=== PATIENT | female | born 1955 | race Caucasian/White ===

== ENCOUNTER → 2023-12-07 14:54 | Outpatient (REF) | payer MEDICARE, OTHER, SELFPAY | LOC: RAD 14:54 | PROVIDERS: ATTENDING PHYSICIAN Family Medicine | DX: R09.89 Other specified symptoms and signs involving the circulatory and respiratory systems (principal) | CPT/HCPCS: 93880 ==

== ENCOUNTER → 2024-07-30 14:16 | Outpatient (REF) | payer MEDICARE, OTHER, SELFPAY | LOC: WDC 14:16 | PROVIDERS: ATTENDING PHYSICIAN Family Medicine; OTHER PHYSICIAN Internal Medicine Endocrinology, Diabetes & Metabolism | DX: M85.89 Other specified disorders of bone density and structure, multiple sites (principal); Z13.820 Encounter for screening for osteoporosis; Z78.0 Asymptomatic menopausal state; Z12.31 Encounter for screening mammogram for malignant neoplasm of breast | CPT/HCPCS: 77063; 77067 ==

== ENCOUNTER → 2024-09-05 09:28 | Outpatient (REF) | payer MEDICARE, OTHER, SELFPAY | LOC: HWRAD 09:28 | PROVIDERS: ATTENDING PHYSICIAN Registered Nurse Ambulatory Care; FAMILY PHYSICIAN Family Medicine | DX: R10.2 Pelvic and perineal pain (principal) | CPT/HCPCS: 76830; 76856 ==

== ENCOUNTER 2024-12-13 16:09 | Inpatient (IN) | payer MEDICARE, OTHER, SELFPAY ==
[2024-12-13] VITALS (9 sets, daily range): BP systolic 98–143; BP diastolic 55–97; BMI 25.8
[2024-12-13] MEDS: DILAUDID 1 MG IV ×2 (09:03→11:26)
--- NOTE | 2024-12-13 11:39 | ED.GENMED ---
History of Present Illness
<Mikhail Rubi DO - Last Filed: 12/13/24 11:42>
General
Chief Complaint: Fall
Time Seen by Provider: 12/13/24 08:13
<MARYURI Jeffrey - Last Filed: 12/13/24 14:40>
General
Source: patient and family
Exam Limitations: none
Nursing documentation reviewed up to this point in time: agreed with
History of Present Illness
History of Present Illness:
Patient is a 69-year female who presents with right ankle deformity and injury. She slipped down several steps this morning. She denies hitting her head she has no other complaints except right ankle pain. She denies any headache nausea vomiting.
She is not on blood thinners. She is a type 1 insulin-dependent diabetic.
Past History
<Mikhail Rubi DO - Last Filed: 12/13/24 11:42>
Past History
ED Past Medical History: Asthma, IDDM and Hypothyroidism
Social History
Tobacco: Non-smoker
Alcohol: None
Personal:
Employment: Employed
Review of Systems
<MARYURI Jeffrey - Last Filed: 12/13/24 14:40>
Review of Systems
Allergies reviewed?: Yes
All Other Systems: ROS reviewed and negative except as documented in HPI and ROS
Constitutional: Reports no symptoms; Denies fever, fatigue or chills
Respiratory: Reports no symptoms
Cardiac: Reports no symptoms
ABD/GI: Reports no symptoms
Musculoskeletal: Reports other (right ankle pain/deformity )
Hematologic/Lymphatic: Reports no symptoms
Psychiatric: Reports no symptoms
Phy Exam
<MARYURI Jeffrey - Last Filed: 12/13/24 14:40>
General Physical Exam
General Presentation: no apparent distress
General age: appears stated age
General Skin: warm and dry
General Habitus: normal
General Mental: alert
General Hydration: appears well hydrated
Eye Exam
Eye Exam: PERRL and EOMI
Eye Exam General: PERRL: bilateral and EOM intact: bilateral
Pupil Exam: Bilateral: round and reactive
Cardiovascular Exam
Cardiovascular Exam: regular rate/rhythm, no murmur and normal peripheral pulses
Pulmonary Exam
Pulmonary Exam: lungs clear and no respiratory distress
Neurological Exam
Neurological Exam: alert and oriented x3
Musculoskeletal Exam
Musculoskeletal Exam: other (rle with strong pulses + obvious deformity no abrasions or lacerations; normal cap refill normal sensation; no obvious head injury no c spine tenderness )
Skin Exam
Skin Exam: normal color and warm/dry
Psychiatric Exam
Psychiatric Exam: normal mood/affect
Course
<Mikhail Rubi, DO - Last Filed: 12/13/24 11:42>
Orders/Labs/Results
Orders:
Orders
12/13/24 07:44
Ankle, Right 3 view CR [CR Ankle - Right Min 3 Views *] Urgent
Comment:
Reason For Exam: fell down couple steps twisted right ankle
12/13/24 08:48
IV Insert/Care/Rem.- Treatment PRN
HYDROmorphone [Dilaudid] 1 mg IV NOW STA
12/13/24 11:22
HYDROmorphone [Dilaudid] 1 mg IV NOW STA
12/13/24 11:38
CT Lower Ext W/o Iv Cont Rt Urgent
Comment:
Reason For Exam: trauma
12/13/24 11:56
CBC/With Diff [Complete Blood Count/With Diff] Urgent
CMP [Comprehensive Metabolic Panel] Urgent
12/13/24 13:43
Ondansetron Injectable [Zofran] 4 mg IV NOW STA
Abnormal Lab Results
12/13/24
11:56
Hct 36.8 L %
(37.0-47.0)
MCHC 32.6 L g/dL
(33.0-37.0)
Lymphocytes % 18.2 L %
(20.5-51.1)
Carbon Dioxide 32 H mmol/L
(22-30)
Total Protein 5.9 L g/dl
(6.3-8.2)
12/13/24 11:56
12/13/24 11:56
Vital Signs
Initial and Last Documented VS:
Initial Vital Signs
Temp Pulse Resp BP Pulse Ox
98.8 F 67 16 127/65 98
12/13/24 07:45 12/13/24 07:45 12/13/24 07:45 12/13/24 07:45 12/13/24 07:45
Last Documented Vital Signs
Temp Pulse Resp BP Pulse Ox
98.8 F 63 16 129/97 95
12/13/24 07:45 12/13/24 10:13 12/13/24 10:13 12/13/24 13:47 12/13/24 14:00
<MARYURI Jeffrey - Last Filed: 12/13/24 14:40>
Orders/Labs/Results
Orders:
Orders
12/13/24 07:44
Ankle, Right 3 view CR [CR Ankle - Right Min 3 Views *] Urgent
Comment:
Reason For Exam: fell down couple steps twisted right ankle
12/13/24 08:48
IV Insert/Care/Rem.- Treatment PRN
HYDROmorphone [Dilaudid] 1 mg IV NOW STA
12/13/24 11:22
HYDROmorphone [Dilaudid] 1 mg IV NOW STA
12/13/24 11:38
CT Lower Ext W/o Iv Cont Rt Urgent
Comment:
Reason For Exam: trauma
12/13/24 11:56
CBC/With Diff [Complete Blood Count/With Diff] Urgent
CMP [Comprehensive Metabolic Panel] Urgent
12/13/24 13:43
Ondansetron Injectable [Zofran] 4 mg IV NOW STA
Abnormal Lab Results
12/13/24
11:56
Hct 36.8 L %
(37.0-47.0)
MCHC 32.6 L g/dL
(33.0-37.0)
Lymphocytes % 18.2 L %
(20.5-51.1)
Carbon Dioxide 32 H mmol/L
(22-30)
Total Protein 5.9 L g/dl
(6.3-8.2)
12/13/24 11:56
12/13/24 11:56
Vital Signs
Initial and Last Documented VS:
Initial Vital Signs
Temp Pulse Resp BP Pulse Ox
98.8 F 67 16 127/65 98
12/13/24 07:45 12/13/24 07:45 12/13/24 07:45 12/13/24 07:45 12/13/24 07:45
Last Documented Vital Signs
Temp Pulse Resp BP Pulse Ox
98.8 F 63 16 129/97 95
12/13/24 07:45 12/13/24 10:13 12/13/24 10:13 12/13/24 13:47 12/13/24 14:00
Chemists consulted with Physician
Chemists consulted with physician?: Yes
Name of Physician Consulted: Greyson
Procedures
<Mikhail Rubi DO - Last Filed: 12/13/24 11:42>
Joint/Fracture Reduction
Right Posterior Distal Ankle:
Indication for procedure:: Right Trimalleoular frature
Procedure completed by: Mikhail Rubi DO
Consent form signed: No
Joint reduced: without anesthesia
Injury was: closed
Further treatement: needs further treatment
Post reduction exam: stable
Capillary Refill: normal
Peripheral Pulses: dorsalis pedis (right): 2+
Additional information:
Patient gave verbal consent for procedure
<MARYURI Jeffrey - Last Filed: 12/13/24 14:40>
Splinting/Sling Placement
Right Ankle:
Pre-splint extermity exam: neurovascular intact
Type of splint: other (stir up/ posterior splint)
Splint material: fiberglass
Splint checked by provider?: Yes
<MARYURI Jeffrey - Last Filed: 12/13/24 14:40>
MDM/Problems Addressed
Differential Diagnosis Includes:
Not limited to ankle fracture/dislocation
MDM/Problems Addressed:
Patient is a 69-year female who fell a couple sepsis morning injuring her right ankle. Patient denies hitting her head no bony C-spine tenderness no other extremity injury except her right ankle. Patient has a trimalleolar ankle fracture
dislocation. She does have a mild deformity no abrasions or lacerations. Strong pulses normal sensation. Case reviewed with orthopedics Dr. Landry in splint neutral dorsiflexion who does recommend reduce it and splinting in neutral dorsiflexion
position. Patient was medicated with Dilaudid for pain and with assistance with Dr. Rubi this was completed with splint in place. CAT scan ordered as documented after reduction. Basic blood work was checked because pt reported that pt has had
scattered bruising. platelets are nml.
Pt is stable for d/c home splint care reviewed with ortho follow up.
Orthopedics visualized CAT scan and feels that patient may need to be reduced again. Unfortunately she just ate. In addition she is feeling nauseous. Patient will likely need to be admitted and will need to have procedure in the morning.
discussed with DR Trotter (who will pt this evening ) will adm to hospitalist
Chronic conditions affecting care:
Iddm
<MARYURI Jeffrey - Last Filed: 12/13/24 14:40>
*Critical Care Note
Total Time (30-74mins, 75-104mins- exclusive of procedures): Not Applicable
<MARYURI Jeffrey - Last Filed: 12/13/24 14:40>
Patient Management
Discussion with other providers: Microbiology Lab Assistant (Dr Landry/Rose Marie )
ED Attending Note
<Mikhail Rubi DO - Last Filed: 12/13/24 11:42>
ED Attending Note
Patient seen and examined by attending physician: Yes
I performed the substantive portion of visit, reviewed & personally made and approve the management plan that is documented in note by myself or DARNELL.: Yes
ED Attending Note:
I have seen and evaluated the patient with a [id number] encounter. I have spoken to the advance practicer provider and involved in the medical history, the physical exam, medical decision making.
Evaluation and management service: agree unless noted differently below.
Results interpretation: agree unless noted differently below.
Focused HPI: 69-year-old female presenting with right ankle injury. Patient states she slipped on the steps. She denies numbness or tingling
Physical exam: Obvious deformity to right ankle. Distal pulses and sensation grossly intact
Medical Decision Making: X-ray consistent with trimalleolar fracture and dislocation. After IV pain medicine, patient tolerated reduction well. Splint placed. Orthopedics aware and will follow
-
Portions of this chart may have been created with voice recognition software.� Occasional wrong word or��sound alike� substitutions may have occurred due to the inherent limitations of voice recognition software.
Discharge Plan
Departure
Patient Disposition: Admit
Date of Disposition: 12/13/24
Time of Disposition: 14:34
Admit to: Med/Surg
Admit to doctor: hospitalist
Presentation/result/management discussed w/ accepting MD/DO: Hospitalist
Patient with high blood pressure during this ER visit?: Yes
Condition: Fair
Covid-19: Not Applicable
Discharge Problem:
Closed displaced trimalleolar fracture of right ankle
Prescriptions:
No Action
aspirin 81 MG tablet,delayed release (DR/EC)
81 mg PO DAILY
esomeprazole magnesium [Nexium] 40 MG capsule,delayed release(DR/EC)
40 mg PO DAILY
levothyroxine 125 MCG tablet
125 mcg PO DAILY
fluticasone propion-salmeterol 100 MCG/50 MCG blister with device
1 puff inhalation DAILY
Lactobacillus rhamnosus GG 1 EACH capsule
1 ea PO DAILY
rosuvastatin 5 MG tablet
5 mg PO QPM
cholecalciferol (vitamin D3) [Vitamin D3] 2,000 UNIT tablet
4,000 unit PO DAILY
calcium carbonate-vit D3-min 1 EACH tablet,chewable
1 ea PO DAILY
Citalopram
60 mg PO DAILY
Multiple Vitamins
1 cap PO DAILY
Novolog:
IP DAILY
Patient Comments:
novolog insulin pump
ondansetron HCl [Zofran] 8 MG tablet
8 mg PO TIDPRN PRN (Reason: nausea) Qty: 15 0RF
Referrals:
Xander Lawton CRNP [Family Provider] -
Interventions
Interventions:
*Risk Screen - Suicide Last Done: 12/13/24 07:40
*General Assessment Last Done: 12/13/24 08:19
*Neglect/Abuse Screening Last Done: 12/13/24 07:40
*ED- Fall Risk Assessment Last Done: 12/13/24 08:19
*ED COVID-19 Vaccine History Last Done: 12/13/24 08:19
ED-Musculoskeletal Assessment Last Done: 12/13/24 08:19
ED- Neurological Assessment Last Done: 12/13/24 08:19
ED-Skin Assessment Last Done: 12/13/24 08:19
Discharge Date and Time
Print Language: ESTONIAN
[2024-12-13 12:09] LABS: % Basophils 0.3 % (0-2); % Eosinophils 0.7 % (0-6); % Immature Granulocytes 0.4 % (0-0.5); % Lymphocytes 18.2 % (20.5-51.1); % Monocytes 5.4 % (1.7-9.3); Absolute Eosinophils 0.1 10^3/uL (0-0.7); Absolute Lymphocytes 1.3 10^3/uL (1.2-3.4); Absolute Monocytes 0.4 10^3/uL (0.1-0.6); Absolute Neutrophils 5.5 10^3/uL (1.4-6.5); Hematocrit 36.8 % (37.0-47.0); Mean Corp Hgb Conc. 32.6 g/dL (33.0-37.0); Mean Corpuscular Hgb 27.8 pg (27.0-31.0); Mean Corpuscular Volume 85.2 fL (81.0-99.0); Mean Platelet Volume 8.6 fL (7.4-10.4); Nucleated Red Blood Cells % 0 %; Platelet Count 265 10^3/uL (130-400); Red Blood Cell Count 4.32 10^6/uL (4.20-5.40); Red Cell Dist. Width 13.1 % (11.5-14.5); White Blood Cell Count 7.4 10^3/uL (4.8-10.8)
[2024-12-13 12:23] LABS: ALT (SGPT) 24 U/L (0-35); AST (SGOT) 22 U/L (14-36); Albumin 3.7 g/dl (3.5-5.0); Alkaline Phosphatase 57 U/L (38-126); Blood Urea Nitrogen 13 mg/dl (7-17); Calcium 9.2 mg/dl (8.4-10.2); Carbon Dioxide 32 mmol/L (22-30); Chloride 103 mmol/L (98-107); Estimated Creatinine Clearance 80 ml/min; Glucose 71 mg/dl (70-99); Potassium 4.5 mmol/L (3.5-5.1); Sodium 138 mmol/L (135-145); Total Bilirubin 0.6 mg/dl (0.2-1.3); Total Protein 5.9 g/dl (6.3-8.2); eGFR > 60.00
[2024-12-13] MEDS: ZOFRAN 4 MG IV (13:46)
--- NOTE | 2024-12-13 15:18 | HPS.HSE ---
Family Physician
-
Family Physician: MARYURI Spence
Chief Complaint
-
Fall and Rt ankle deformity
History of Present Illness
HPI
69F HX IDDM on pump , Asthma seen at ER pw Rt ankle deformity and injury.
- She slipped down several steps this morning.
- She denies hitting her head
- She denies any headache nausea vomiting.
- She is not on blood thinners.
Medical History
Past Medical History
Past Medical History: Reports Asthma, Hypothyroidism and IDDM
Past Surgical History: Reports None
Social History
Tobacco: Non-smoker
Alcohol: None
Family History
Family History: Not pertinent
Allergies / Home Medications
Allergies reflects when Allergies were last updated in [facility].
Home Medications with original date entered in [facility]
Allergy/Medication List:
Allergies
Allergy/AdvReac Type Severity Reaction Status Date / Time
NKA - No Known Allergies Allergy Unknown Uncoded 12/13/24 07:43
Home Medications
Citalopram 60 mg PO DAILY 08/21/10
Lactobacillus rhamnosus GG 10 billion cell capsule 1 ea PO DAILY 08/21/10
Multiple Vitamins 1 cap PO DAILY 08/21/10
Novolog: IP DAILY 08/21/10
aspirin 81 mg tablet,delayed release 81 mg PO DAILY 08/21/10
calcium carb 1,200 mg-vit D3 1,000 unit-minerals chewable tablet 1 ea PO DAILY 08/21/10
cholecalciferol (vitamin D3) 50 mcg (2,000 unit) tablet (Vitamin D3) 4,000 unit PO DAILY 08/21/10
esomeprazole magnesium 40 mg capsule,delayed release (Nexium) 40 mg PO DAILY 08/21/10
fluticasone 100 mcg-salmeterol 50 mcg/dose blistr powdr for inhalation 1 puff inhalation DAILY 08/21/10
levothyroxine 125 mcg tablet 125 mcg PO DAILY 08/21/10
rosuvastatin 5 mg tablet 5 mg PO QPM 08/21/10
ondansetron HCl 8 mg tablet (Zofran) 8 mg PO TIDPRN PRN nausea ##15 08/22/10
Review of Systems
-
Constitutional: Reports No Symptoms
EENT: Reports No Symptoms
Respiratory: Reports No Symptoms
Cardiac: Reports No Symptoms
Abdomen/GI: Reports No Symptoms
: Reports No Symptoms and See HPI
Skin: Reports No Symptoms
Neurological: Reports No Symptoms
Endocrine: Reports No Symptoms
Hematologic/Lymphatic: Reports No Symptoms
Psych: Reports No Symptoms
Physical Exam
Vital Signs
Vital Signs
Temp Pulse Resp BP Pulse Ox
98.8 F 63 16 129/97 95
12/13/24 07:45 12/13/24 10:13 12/13/24 10:13 12/13/24 13:47 12/13/24 14:00
Physical Exam
General: Well Developed, Well Nourished and No Apparent Distress
HEENT: NormoCephalic, Moist mucous membranes and Atraumatic
Respiratory: Clear
Cardiac: S1/S2 and Regular Rhythm; No Murmur or Rub
GI: Soft, Non Tender, Non Distended and Normal Bowel Sounds; No Organomegaly
Rectal: Deferred by Provider
Musculoskeletal: No Clubbing, No Cyanosis, No Edema and Other (Rt ankle deformity )
Skin: No Rash
Neuro: Nonfocal/grossly intact
Laboratory Results
-
12/13/24 11:56
12/13/24 11:56
Laboratory Results
Total Bilirubin 0.6 mg/dl (0.2-1.3) 12/13/24 11:56
AST 22 U/L (14-36) 12/13/24 11:56
ALT 24 U/L (0-35) 12/13/24 11:56
Alkaline Phosphatase 57 U/L (38-126) 12/13/24 11:56
Data Reviewed
-
CT Scan: Report Reviewed by me
Lab Data: Labs Reviewed by me
Old Records: Reviewed
Impression/Plan
-
VS
12/13/24
07:45 12/13/24
11:00
Temp 98.8 F
Pulse 67
Resp Rate 16
Blood pressure 127/65 104/64
SaO2 98
Oxygen Mode of Delivery Room air
Laboratory Tests
12/13/24
11:56
WBC 7.4
Hgb 12.0
Plt Count 265
Carbon Dioxide 32 H
Creatinine 0.6
eGFR > 60.00
CR Ankle - Right Min 3 Views
Trimalleolar ankle fracture/dislocation with posterior subluxation of the talus relative to the distal tibia.
CT Lower Ext W/o Iv Cont Rt
-There is a displaced, highly comminuted trimalleolar fracture/dislocation as detailed above. There is posterior displacement of the talus relative to the distal tibia.
- fractures of the base of the first through fourth metatarsals. Findings may represent Lisfranc injury.
ASSESSMENT & PLAN
Pending Rx reconciliation
Closed Rt ankle Fx involving trimalleolar ankle fracture/dislocation with posterior subluxation of the talus
S/P mechanical Fall +
- s/p attempted reduction at ER
- Foot and ankle Ortho seen and reviewed [facility] [place] suggest need ORIF
- Dr Trotter will come in to eval this evening
- Fx set protocol : NPO after MN, Pain control and IVF
HX IDDM with insulin pump
- stop ISS pump after MN coz she can have dinner
- NPO after MN
- start ISS Low
- DM MANAGER MASS consult for post op pump management
Hypothyroid
- Pending Rx reconciliation
- on CAPACITOR PACK PRESS OPERATOR LT4 ?
HLD
- Pending Rx reconciliation
- on ASA and Rosuvastatin ?
DVT Px: SCD
Full code
IP MS
--- NOTE | 2024-12-13 15:47 | PN.DE.MGMTRT ---
Insulin Management
- -
12/13/2024: Diabetes Management for insulin pump
69 year old female Pt presented to the D /p fall, sustained Closed Rt ankle Fx involving trimalleolar ankle fracture/dislocation with posterior subluxation of the talus. Pt had attempted reduction in the ER that was unsuccessful, plan for ORIF in
AM.
PMH: Asthma, Hypothyroidism and T1DM on insulin pump.
Pt awake, alert, oriented, sitting up in chair, offers no complaints, able to discuss diabetes care plan. at bedside, very supportive
Pt reports recent A1C was 6.8%, uses Omnipod with Dexcom G7 and NovoLog insulin. POD is due to be changed tomorrow. Pump is currently in automated mode. Pump settings as follows. ICR 1:8, ICF 1:75, Target 120, 24 hour basal total 33 units.
Patient is using insulin pump without difficulty.
Will make no adjustments to pump settings. Patient aware to bolus and accuchecks will be done ACHS.
Discussed with Nurse about Pump worksheet to be placed at bedside.
Will cont to follow. Will update A1C
-
Diabetes History
- -
Type of Diabetes: 1
Pre-Admission Diabetes Regimen
12/13/24
11:56
Creatinine 0.6
Insulin Pump Settings
IP Diabetes Regimen
12/13/24
11:56
Glucose 71
Patient Education
--- NOTE | 2024-12-13 17:04 | PTCARENOTE ---
Patient admitted from home following a fall with a trimalleolar right ankle fracture.The patient is alert and oriented.She rates her pain at a 4 out of 10.The patient was able to use the bedside commode with a rolling walker and assistance upon
arrival.She was then placed in the chair with the right leg elevated.Plan is for surgery tomorrow.The patient has her call bernard in reach.
[2024-12-13 18:07] LABS: Glucose - Point of Care 88 mg/dl (70-99)
[2024-12-13] MEDS: TYLENOL 650 MG PO ×2 (18:12→19:42)
--- NOTE | 2024-12-13 19:06 | W.PN.UPDATE ---
Update Note
Progress Note Update
Patient seen at bedside s/p pilon fracture and lisfranc facture
-NPO past midnight
-Strict NWB RLE
-Pain control prn
-to OR tomorrow for Exfix application
-Plan for staged ORIF pending stable soft tissue envelope
[2024-12-13] MEDS: COLACE 100 MG PO (19:42)
[2024-12-13] MEDS: SENOKOT 17.2 MG PO (19:42)
[2024-12-13] MEDS: PT'S OWN INSULIN PUMP - NovoLOG SC (19:56)
[2024-12-13] MEDS: LAMICTAL 100 MG PO (22:08)
[2024-12-13] MEDS: PT'S OWN INSULIN PUMP - NovoLOG 1 UNIT SC (22:09)
[2024-12-13] MEDS: DILAUDID 0.5 MG IV (23:43)
[2024-12-14] VITALS (13 sets, daily range): BP systolic 106–154; BP diastolic 42–69
[2024-12-14] MEDS: TYLENOL PO ×3 (00:41→12:56)
[2024-12-14] MEDS: ROXICODONE 5 MG PO ×2 (01:39→07:39)
[2024-12-14] MEDS: DILAUDID 0.5 MG IV ×2 (03:51→09:31)
[2024-12-14] MEDS: TYLENOL 650 MG PO ×3 (07:42→19:26)
[2024-12-14] MEDS: LAMICTAL 100 MG PO ×2 (07:43→21:16)
[2024-12-14] MEDS: OSCAL CAL 500 500 MG PO (07:44)
[2024-12-14] MEDS: SENOKOT 17.2 MG PO ×2 (07:44→19:26)
[2024-12-14] MEDS: PT'S OWN INSULIN PUMP - NovoLOG SC ×2 (07:47→12:54)
[2024-12-14] MEDS: LR 1000 IV (08:23)
[2024-12-14] MEDS: COLACE 100 MG PO ×3 (08:23→19:26)
[2024-12-14 09:26] LABS: Glycohemoglobin (HgbA1c) 7.2 % (4.0-5.6)
--- NOTE | 2024-12-14 10:05 | CM ---
Reviewed the chart notes and spoke with the patient at the bedside. Patient anticipates going to the OR today for staged ORIF pending stable soft tissue envelope. The patient resides with her spouse in a two story home with three steps to enter.
The patient reports only DME is a glucometer and an insulin pump. The patient confirmed her pharmacy of choice is the [facility]. continues to be available to patient/family and is monitoring medical plan for needs at discharge.
Plan: Discharge plans will depend on the patient's progress.
[2024-12-14] MEDS: TORADOL 10 MG IV (11:09)
--- NOTE | 2024-12-14 13:07 | W.PN.HOSP.TC ---
Today's Communication/Plan
-
Pain control
OR today
Assessment / Plan
Assessment / Plan
69-year-old female had a fall
Xray Ankle - Right -Trimalleolar ankle fracture/dislocation with posterior subluxation of the talus relative to the distal tibia.
CT Lower Ext W/o Iv Cont Rt
-There is a displaced, highly comminuted trimalleolar fracture/dislocation as detailed above. There is posterior displacement of the talus relative to the distal tibia.
- fractures of the base of the first through fourth metatarsals. Findings may represent Lisfranc injury.
CVS: S1-S2 normal
Chest: CTA B/L
Abdomen: Soft, NT / Bowel sounds present
Extremities: No edema,right leg in an immobilizer
# Closed comminuted trimalleolar ankle fracture with dislocation with posterior subluxation on the right
Fractures of the base of the first through fourth metatarsals.
Attempted reduction in the ER
Dr Dominique Trotter to take patient to the OR
Preop EKG Normal
# Diabetes with insulin pump
Accu-Cheks and sliding scale insulin-while n.p.o.
Diabetes management TUBING DRIER consulted
# Hypothyroidism-continue Synthroid 125 mcg daily
# Mental health disorder-continue Lamictal and Lexapro
# Hyperlipidemia-continue atorvastatin
# Asthma-continue Breo Ellipta or equivalent and albuterol
# Migraines
# GERD-continue PPI
# DVT prophylaxis-Lovenox
# Full code
Discussed with nursing.
Discussed with at bedside
Anticipated Discharge: 24 - 48 hours
Subjective/Interval History
-
Date of Service: December 14, 2024
Objective Data
-
Vital Signs:
Vital Signs
Temp Pulse Resp BP Pulse Ox
98.4 F 72 16 122/57 95
12/14/24 07:15 12/14/24 07:15 12/14/24 07:15 12/14/24 07:15 12/14/24 07:15
I&O
12/13/24 12/14/24 12/15/24
06:59 06:59 06:59
Intake Total 480 / 480
Balance 480 / 480
[2024-12-14 13:37] LABS: Glucose - Point of Care 141 mg/dl (70-99)
[2024-12-14] MEDS: ANCEF IV (14:43)
[2024-12-14] MEDS: LOVENOX 40 MG SC ×2 (16:55→16:56)
[2024-12-14] MEDS: PT'S OWN INSULIN PUMP - NovoLOG 6.6 UNIT SC (16:55)
[2024-12-14] MEDS: LIPITOR 40 MG PO (16:57)
[2024-12-14] MEDS: ANCEF 5 IV (21:17)
[2024-12-14 21:42] LABS: Glucose - Point of Care 322 mg/dl (70-99)
[2024-12-14] MEDS: PT'S OWN INSULIN PUMP - NovoLOG 0.5 UNIT SC (22:47)
[2024-12-15] VITALS (7 sets, daily range): BP systolic 124–144; BP diastolic 46–66; PULSE 83; O2SAT 96
[2024-12-15] MEDS: TYLENOL PO (00:40)
[2024-12-15] MEDS: LR 1000 IV (01:19)
[2024-12-15] MEDS: TYLENOL 650 MG PO ×6 (03:00→23:59)
[2024-12-15] MEDS: ANCEF 5 IV ×2 (05:28→12:39)
[2024-12-15 05:34] LABS: Hematocrit 32.4 % (37.0-47.0); Hemoglobin 10.6 g/dL (12.0-16.0); Mean Corp Hgb Conc. 32.7 g/dL (33.0-37.0); Mean Corpuscular Hgb 27.7 pg (27.0-31.0); Mean Corpuscular Volume 84.8 fL (81.0-99.0); Mean Platelet Volume 9.2 fL (7.4-10.4); Platelet Count 239 10^3/uL (130-400); Red Blood Cell Count 3.82 10^6/uL (4.20-5.40); Red Cell Dist. Width 12.9 % (11.5-14.5); White Blood Cell Count 8.7 10^3/uL (4.8-10.8)
[2024-12-15 05:54] LABS: Blood Urea Nitrogen 14 mg/dl (7-17); Calcium 8.9 mg/dl (8.4-10.2); Carbon Dioxide 32 mmol/L (22-30); Chloride 97 mmol/L (98-107); Estimated Creatinine Clearance 80 ml/min; Glucose 248 mg/dl (70-99); Potassium 4.6 mmol/L (3.5-5.1); Sodium 135 mmol/L (135-145); eGFR > 60.00
[2024-12-15] MEDS: PT'S OWN INSULIN PUMP - NovoLOG SC ×3 (08:00→22:00)
[2024-12-15] MEDS: OSCAL CAL 500 500 MG PO (08:03)
[2024-12-15] MEDS: SENOKOT 17.2 MG PO ×2 (08:04→21:33)
[2024-12-15] MEDS: ROXICODONE 5 MG PO (08:05)
[2024-12-15] MEDS: LAMICTAL 100 MG PO ×2 (08:06→21:33)
--- NOTE | 2024-12-15 11:38 | W.PN.UPDATE ---
Update Note
Progress Note Update
s/p right ankle external fixator
Strict NWB RLE
Contine ABx for 24 hour from surgery
Plan for staged procedure this week, can be inpatient or outpatient
PT/OT
Dressings C/D/I
[2024-12-15] MEDS: TORADOL 10 MG IV (12:37)
[2024-12-15] MEDS: LR IV (14:13)
--- NOTE | 2024-12-15 14:30 | PTCARENOTE ---
TT to Dr. Trotter regarding d/c IVF and d/c continuous pulse ox.
--- NOTE | 2024-12-15 14:39 | W.PN.HOSP.TC ---
Today's Communication/Plan
-
Change site for insulin pump
Make sure we document Accu-Cheks with our meter before meals and at bedtime
PT with nonweightbearing right lower extremity
Second stage surgery planned for December 18
Assessment / Plan
Assessment / Plan
Seen earlier today. Late documentation
69-year-old female had a fall
Xray Ankle - Right -Trimalleolar ankle fracture/dislocation with posterior subluxation of the talus relative to the distal tibia.
CT Lower Ext W/o Iv Cont Rt
-There is a displaced, highly comminuted trimalleolar fracture/dislocation as detailed above. There is posterior displacement of the talus relative to the distal tibia.
- fractures of the base of the first through fourth metatarsals. Findings may represent Lisfranc injury.
CVS: S1-S2 normal
Chest: CTA B/L
Abdomen: Soft, NT / Bowel sounds present
Extremities: No edema,right leg in an immobilizer, external fixator
# Closed comminuted trimalleolar ankle fracture with dislocation with posterior subluxation on the right
Fractures of the base of the first through fourth metatarsals.
Attempted reduction in the ER
Dr. Trotter took patient to the OR 12/14/2024-Right ankle multiplanar external fixator applied with close to reduction of Lisfranc fracture and closed reduction of the tib-fib pilon fracture
Next to surgery is planned for December 18 2024
Patient was given the option to go home and come back for the surgery however patient and feel uncomfortable with that and wants to stay and get the surgery done.
Strict nonweightbearing right lower extremity
# Diabetes with insulin pump
Diabetes management PLANNING ASSOCIATE consulted
Patient's sugar was about 300 last night
She states that it is a one-time thing and has been 238 today.
I do not see Accu-Cheks documented since last night. I told the patient as well as nursing that we need to document Accu-Cheks with our meter
Patient follows with Dr. Scott from endocrinology
Advised patient to change the site which she will change tonight if the sugars are running high.
# Hypothyroidism-continue Synthroid 125 mcg daily
# Mental health disorder-continue Lamictal and Lexapro
# Hyperlipidemia-continue atorvastatin
# Asthma-continue Breo Ellipta or equivalent and albuterol
# Migraines
# GERD-continue PPI
# DVT prophylaxis-Lovenox
# Full code
Discussed with nursing.
Discussed with at bedside
Anticipated Discharge: > 48 hours
Subjective/Interval History
-
Date of Service: December 15, 2024
Objective Data
-
Labs:
Laboratory Results
12/15/24
04:01
WBC 8.7
Hgb 10.6 L
Hct 32.4 L
Plt Count 239
Sodium 135
Potassium 4.6
Chloride 97 L
Carbon Dioxide 32 H
BUN 14
Creatinine 0.5 L
Glucose 248 H
Calcium 8.9
Vital Signs:
Vital Signs
Temp Pulse Resp BP Pulse Ox
98.4 F 78 16 144/66 97
12/15/24 11:05 12/15/24 11:05 12/15/24 11:05 12/15/24 11:05 12/15/24 11:05
I&O
12/14/24 12/15/24 12/16/24
06:59 06:59 06:59
Intake Total 480 / 480 1320 / 1320 480 / 480
Output Total 1500 / 1500
Balance 480 / 480 -180 / -180 480 / 480
[2024-12-15 17:11] LABS: Glucose - Point of Care 172 mg/dl (70-99)
[2024-12-15] MEDS: PT'S OWN INSULIN PUMP - NovoLOG 5.35 UNIT SC (17:38)
[2024-12-15] MEDS: LIPITOR 40 MG PO (19:21)
[2024-12-15] MEDS: COLACE 100 MG PO (21:33)
[2024-12-15] MEDS: LIDOCAINE 4% PATCH 1 PATCH TOPICAL (21:34)
[2024-12-15] MEDS: PROTONIX 40 MG PO (23:59)
[2024-12-16] MEDS: ROXICODONE 5 MG PO ×2 (01:05→23:51)
[2024-12-16] MEDS: TYLENOL PO (05:03)
[2024-12-16] MEDS: TORADOL 10 MG IV ×2 (05:35→14:15)
[2024-12-16 07:05] VITALS: BP 132/68
[2024-12-16 07:40] LABS: Hematocrit 31.9 % (37.0-47.0); Hemoglobin 10.2 g/dL (12.0-16.0); Mean Corpuscular Hgb 27.3 pg (27.0-31.0); Mean Corpuscular Volume 85.5 fL (81.0-99.0); Mean Platelet Volume 8.7 fL (7.4-10.4); Platelet Count 230 10^3/uL (130-400); Red Blood Cell Count 3.73 10^6/uL (4.20-5.40); Red Cell Dist. Width 13.1 % (11.5-14.5); White Blood Cell Count 6.5 10^3/uL (4.8-10.8)
[2024-12-16] MEDS: SENOKOT 17.2 MG PO (08:00)
[2024-12-16] MEDS: TYLENOL 650 MG PO ×5 (08:00→23:51)
[2024-12-16] MEDS: OSCAL CAL 500 500 MG PO (08:01)
[2024-12-16] MEDS: PROTONIX 40 MG PO (08:01)
[2024-12-16] MEDS: LAMICTAL 100 MG PO ×2 (08:01→20:55)
[2024-12-16] MEDS: LIDOCAINE 4% PATCH 1 PATCH TOPICAL (08:01)
[2024-12-16] MEDS: COLACE 100 MG PO ×2 (08:01→20:58)
[2024-12-16 08:11] LABS: Blood Urea Nitrogen 11 mg/dl (7-17); Calcium 8.8 mg/dl (8.4-10.2); Carbon Dioxide 33 mmol/L (22-30); Chloride 99 mmol/L (98-107); Estimated Creatinine Clearance 80 ml/min; Glucose 102 mg/dl (70-99); Potassium 4.4 mmol/L (3.5-5.1); Sodium 138 mmol/L (135-145); eGFR > 60.00
--- NOTE | 2024-12-16 08:34 | PN.DE.MGMTRT ---
Insulin Management
- -
12/16/2024: Diabetes Management for insulin pump follow up
69 year old female Pt presented to the D /p fall, sustained Closed Rt ankle Fx involving trimalleolar ankle fracture/dislocation with posterior subluxation of the talus. Pt had attempted reduction in the ER that was unsuccessful, plan for ORIF in
AM.
PMH: Asthma, Hypothyroidism and T1DM on insulin pump. routinely sees Endo Dr. Scott. Pt reports recent A1C was 6.8%, uses Omnipod with Dexcom G7 and NovoLog insulin. POD is due to be changed tomorrow. Update A1C 7.2%, Cr 0.6, eGFR>60
Pt awake, alert, oriented, sitting up in chair, offers no complaints, able to discuss diabetes care plan. at bedside, very supportive
POD #2 s/p Right ankle external fixator. Pt was given the option to go home and come back for the surgery however pt and felt uncomfortable with that and wanted to stay and get the surgery done. Next surgery is planned for MondayDecember 18
Pump is currently in automated mode. Pump settings as follows. ICR 1:8, ICF 1:75, Target 120, 24 hour basal total 33 units.
Patient is using insulin pump without difficulty.
Will make no adjustments to pump settings, pt aware to bolus.
Accuchecks will be done ACHS with hospital equipment. Need for accucheks with CGM in place discussed with pt and . Both were under the impression that pt did not need glucose checks while in the hospital.
Discussed with Nurse about insulin Pump worksheet at bedside.
Will cont to follow.
Diabetes History
- -
Type of Diabetes: 1
Pre-Admission Diabetes Regimen
12/16/24
07:15
Creatinine 0.6
Lab Results
Hemoglobin A1c 7.2 % (4.0-5.6) H 12/13/24 11:56
Insulin Pump Settings
IP Diabetes Regimen
12/15/24 12/16/24
17:10 07:15
Glucose 102 H
POC Glucose 172 H
Meal type: Lunch
Meal type: Breakfast
Amount consumed: 100%
Amount consumed: 95%
Patient Education
--- NOTE | 2024-12-16 08:50 | W.PN.HOSP.TC ---
Today's Communication/Plan
-
Continue accuchecks and insulin, pain control
Assessment / Plan
Assessment / Plan
69-year-old female s/p fall
Xray Ankle - Right -Trimalleolar ankle fracture/dislocation with posterior subluxation of the talus relative to the distal tibia.
CT Lower Ext W/o Iv Cont Rt
-There is a displaced, highly comminuted trimalleolar fracture/dislocation as detailed above. There is posterior displacement of the talus relative to the distal tibia.
- fractures of the base of the first through fourth metatarsals. Findings may represent Lisfranc injury.
# Closed comminuted trimalleolar ankle fracture with dislocation with posterior subluxation on the right
Fractures of the base of the first through fourth metatarsals.
Attempted reduction in the ER
Dr. Trotter took patient to the OR 12/14/2024-Right ankle multiplanar external fixator applied with close to reduction of Lisfranc fracture and closed reduction of the tib-fib pilon fracture
Next to surgery is planned for December 18 2024
Patient was given the option to go home and come back for the surgery however patient and feel uncomfortable with that and wants to stay and get the surgery done.
Strict nonweightbearing right lower extremity
Continue PT/OT
Pain control
# Diabetes I with insulin pump
Patient follows with Dr. Scott from endocrinology
Diabetes management HEAVY DUTY PRESS OPERATOR consulted
Continue accuchecks with hospital equipment to ensure accuracy of patients monitor
Continue insulin
# Hypothyroidism-continue Synthroid 125 mcg daily
# Mental health disorder, anxiety/depression-continue Lamictal and Lexapro
# Hyperlipidemia-continue atorvastatin
# Asthma-continue Breo Ellipta or equivalent and albuterol
# GERD-continue PPI
# Right rib pain
- xray negative for rib fracture
- Supportive care
- Incentive spirometer
Code status: Full
VTE ppx: lovenox
Diet: Diabetic
Dispo planning: anticipate SNF, pending PT/OT evaluation postop
Anticipated Discharge: > 48 hours
Subjective/Interval History
-
Date of Service: December 16, 2024
No acute events overnight. Complains of R rib pain, which is improved with lidocaine patch. Denies dizziness, chest pain, shortness of breath, nausea, vomiting, diarrhea, constipation. Has been out of bed to bedside commode, otherwise not
ambulating. Tolerating PO diet. Last BM overnight.
Objective Data
-
Labs:
Laboratory Results
12/16/24
07:15
WBC 6.5
Hgb 10.2 L
Hct 31.9 L
Plt Count 230
Sodium 138
Potassium 4.4
Chloride 99
Carbon Dioxide 33 H
BUN 11
Creatinine 0.6
Glucose 102 H
Calcium 8.8
Vital Signs:
Vital Signs
Temp Pulse Resp BP Pulse Ox
97.9 F 67 16 132/68 98
12/16/24 07:05 12/16/24 07:05 12/16/24 07:05 12/16/24 07:05 12/16/24 07:05
I&O
12/15/24 12/16/24 12/17/24
06:59 06:59 06:59
Intake Total 1320 / 1320 1320 / 1320 960 / 960
Output Total 1500 / 1500
Balance -180 / -180 1320 / 1320 960 / 960
Review of Systems
-
History Source: Patient
All other systems: Reviewed and negative
Physical Exam
-
General: Well Developed, No Apparent Distress, Comfortable and Conversant; Negative Pain
HEENT: Normocephalic and Atraumatic
Respiratory: Clear to Auscultation and Non Labored Respirations; Negative Wheezes or Crackles
Cardiac: Regular Rhythm and S1/S2
GI: Soft, Nontender, Nondistended and Normal Bowel Sounds
Musculoskeletal: Other (RLE in immobilizer, external fixator )
Skin: Warm and Dry
Neuro: Awake, Alert, Oriented and Nonfocal/Grossly Intact
Psych: Calm and Intact Judgement/Insight
Data Reviewed
-
Diagnostic Radiology: Image personally visualized and interpreted and Report Reviewed by me
CT Scan: Report Reviewed by me
Labs: Labs Reviewed by me
[2024-12-16 09:20] LABS: Glucose - Point of Care 132 mg/dl (70-99)
[2024-12-16] MEDS: PT'S OWN INSULIN PUMP - NovoLOG 3.75 UNIT SC (09:20)
[2024-12-16 09:35] VITALS: BP 129/58; PULSE 78
[2024-12-16 09:40] VITALS: BP 129/58; PULSE 78
--- NOTE | 2024-12-16 10:36 | W.PN.UPDATE ---
Update Note
Progress Note Update
I saw and evaluated the patient. I reviewed the resident�s note and agree with findings and plan as documented in the resident�s note.
No new complaints.
Gen: NAD, AAOx3.
Eyes: EOMI, PERRLA, no scleral icterus.
Neck: supple.
CV: RRR, +S1/S2, no m/r/g.
Resp: CTAB, no rales, wheezes, or rhonchi.
Abd: +BS, soft, NT, ND
Skin: No rashes.
Neuro: CN 2-12 intact, non-focal.
Psych: Normal mood and affect.
R Ankle Xray: Trimalleolar ankle fracture/dislocation with posterior subluxation of the talus relative to the distal tibia.
CT RLE: Displaced, highly comminuted trimalleolar fracture/dislocation as detailed above. Posterior displacement of the talus relative to the distal tibia. Fractures of the base of the first through fourth metatarsals. Findings may represent
Lisfranc injury.
Closed comminuted trimalleolar ankle fracture with dislocation with posterior subluxation on the right, fractures of the base of the first through fourth metatarsals:
-reduction was attempted in the ER
-s/p Right ankle multiplanar external fixator applied with close to reduction of Lisfranc fracture and closed reduction of the tib-fib pilon fracture on 12/14/24
-next surgery planned for 12/18/24
-Strict NWB RLE
DM2:
-cont insulin pump
-diabetes TRUCK DRIVER HEAVY following
Other problems:
Hypothyroidism: cont Synthroid
Mental health disorder: cont Lamictal/Lexapro
HLD: cont atorvastatin
Asthma, not in acute exac
Migraine headaches
GERD: cont PPI
FULL/Lovenox
[2024-12-16 13:41] LABS: Glucose - Point of Care 159 mg/dl (70-99)
[2024-12-16] MEDS: PT'S OWN INSULIN PUMP - NovoLOG 1.75 UNIT SC (13:53)
--- NOTE | 2024-12-16 15:36 | CM ---
Patient seen at bedside with patient . Patient plan is for surgery on mon. and she is hoping to have less hardware and possibly be able look at next step for rehab pending assessments. CM will continue to follow for discharge planning needs.
Plan; home with VN pending therapy assessments.
[2024-12-16 15:39] VITALS: BP 133/57
--- NOTE | 2024-12-16 16:15 | W.PN.SURGUPD ---
Surgical Update
Surgical Update
s/p right ankle external fixator
Strict NWB RLE
Continue abx for 24 hour from surgery
Plan for ORIF Monday vs this pending progress
Will continue to follow
[2024-12-16 17:35] LABS: Glucose - Point of Care 130 mg/dl (70-99)
[2024-12-16] MEDS: PT'S OWN INSULIN PUMP - NovoLOG 3.65 UNIT SC (18:23)
[2024-12-16] MEDS: LIPITOR 40 MG PO (18:28)
[2024-12-16] MEDS: LOVENOX 40 MG SC (18:28)
[2024-12-16] MEDS: SENOKOT PO (20:58)
[2024-12-16 23:05] VITALS: BP 145/72
[2024-12-16] MEDS: PT'S OWN INSULIN PUMP - NovoLOG 0.64 UNIT SC (23:46)
[2024-12-17] MEDS: TYLENOL PO (05:06)
[2024-12-17 06:10] LABS: Hematocrit 33.2 % (37.0-47.0); Hemoglobin 10.7 g/dL (12.0-16.0); Mean Corp Hgb Conc. 32.2 g/dL (33.0-37.0); Mean Corpuscular Hgb 27.3 pg (27.0-31.0); Mean Corpuscular Volume 84.7 fL (81.0-99.0); Mean Platelet Volume 8.9 fL (7.4-10.4); Platelet Count 248 10^3/uL (130-400); Red Blood Cell Count 3.92 10^6/uL (4.20-5.40); Red Cell Dist. Width 13.2 % (11.5-14.5)
[2024-12-17 06:33] LABS: Blood Urea Nitrogen 11 mg/dl (7-17); Calcium 8.9 mg/dl (8.4-10.2); Carbon Dioxide 33 mmol/L (22-30); Chloride 100 mmol/L (98-107); Estimated Creatinine Clearance 80 ml/min; Glucose 106 mg/dl (70-99); Potassium 4.3 mmol/L (3.5-5.1); Sodium 137 mmol/L (135-145); eGFR > 60.00
[2024-12-17 07:00] VITALS: BP 149/71
[2024-12-17] MEDS: LIDOCAINE 4% PATCH 1 PATCH TOPICAL (07:30)
[2024-12-17] MEDS: COLACE 100 MG PO (07:30)
[2024-12-17] MEDS: PROTONIX 40 MG PO (07:30)
[2024-12-17] MEDS: SENOKOT 17.2 MG PO (07:30)
[2024-12-17] MEDS: LAMICTAL 100 MG PO ×2 (07:30→20:45)
[2024-12-17] MEDS: OSCAL CAL 500 500 MG PO (07:30)
[2024-12-17] MEDS: TYLENOL 650 MG PO ×5 (07:31→23:16)
[2024-12-17] MEDS: TORADOL 10 MG IV ×2 (07:38→23:16)
--- NOTE | 2024-12-17 08:03 | PN.DE.MGMTRT ---
Insulin Management
- -
12/17/2024: Diabetes Management for insulin pump follow up
69 year old female Pt presented to the D /p fall, sustained Closed Rt ankle Fx involving trimalleolar ankle fracture/dislocation with posterior subluxation of the talus. Pt had attempted reduction in the ER that was unsuccessful, plan for ORIF in
AM.
PMH: Asthma, Hypothyroidism and T1DM on insulin pump. routinely sees Endo Dr. Scott. Pt reports recent A1C was 6.8%, uses Omnipod with Dexcom G7 and NovoLog insulin. A1C 7.2%, Cr 0.6, eGFR>60
Pt awake, alert, oriented, sitting up in chair, offers no complaints, able to discuss diabetes care plan. at bedside, very supportive
POD #3 s/p Right ankle external fixator. Pt was given the option to go home and come back for the surgery however pt and felt uncomfortable with that and wanted to stay and get the surgery done. Next surgery is planned for MondayDecember 18
Pump is currently in automated mode. Pump settings as follows. ICR 1:8, ICF 1:75, Target 120, 24 hour basal total 33 units.
Patient is using insulin pump without difficulty.
Will make no adjustments to pump settings, pt aware to bolus for meals and correction if required.
Accuchecks will be done ACHS with hospital equipment. Need for accucheks with CGM in place discussed with pt and . Both were under the impression that pt did not need glucose checks while in the hospital.
Insulin Pump worksheet at bedside.
Will cont to follow.
Diabetes History
- -
Type of Diabetes: 2 requiring insulin
Pre-Admission Diabetes Regimen
12/16/24 12/17/24
07:15 05:15
Creatinine 0.6 0.6
Lab Results
Hemoglobin A1c 7.2 % (4.0-5.6) H 12/13/24 11:56
Insulin Pump Settings
IP Diabetes Regimen
12/16/24 12/16/24 12/16/24
07:15 09:19 13:39
Glucose 102 H
POC Glucose 132 H 159 H
12/16/24 12/17/24
17:31 05:15
Glucose 106 H
POC Glucose 130 H
Meal type: Dinner
Meal type: Breakfast
Amount consumed: 100%
Amount consumed: 85%
Patient Education
[2024-12-17 08:09] LABS: Glucose - Point of Care 132 mg/dl (70-99)
[2024-12-17] MEDS: PT'S OWN INSULIN PUMP - NovoLOG SC (08:16)
--- NOTE | 2024-12-17 09:46 | W.PN.HOSP.TC ---
Today's Communication/Plan
-
Continue accuchecks and insulin, pain control
Assessment / Plan
Assessment / Plan
69-year-old female with PMH IDDM I, asthma admitted for right ankle fracture s/p fall
Xray Ankle - Right -Trimalleolar ankle fracture/dislocation with posterior subluxation of the talus relative to the distal tibia.
CT Lower Ext W/o Iv Cont Rt
-There is a displaced, highly comminuted trimalleolar fracture/dislocation as detailed above. There is posterior displacement of the talus relative to the distal tibia.
- fractures of the base of the first through fourth metatarsals. Findings may represent Lisfranc injury.
# Closed comminuted trimalleolar ankle fracture with dislocation with posterior subluxation on the right
# Fractures of the base of the first through fourth metatarsals.
- S/p Attempted reduction in the ER.
- S/p OR with Dr. Trotter 12/14/2024-Right ankle multiplanar external fixator applied with close to reduction of Lisfranc fracture and closed reduction of the tib-fib pilon fracture
- Next surgery is planned for December 18 vs , per podiatry.
- Strict nonweightbearing right lower extremity
- Continue PT/OT
- Pain control- required oxycodone x1 overnight.
# Diabetes I with insulin pump
- Patient follows with Dr. Scott from endocrinology
- A1C- 7.2 on admission, POC BS elevated as well
- Diabetes management following, appreciate recs.
- Continue accuchecks with hospital equipment to ensure accuracy of patients monitor
- Continue home insulin regimen and automated pump mode with bolus prn
# Hypothyroidism-continue Synthroid 125 mcg daily
# Mental health disorder, anxiety/depression-continue Lamictal and Lexapro
# Hyperlipidemia-continue atorvastatin
# Asthma-continue Breo Ellipta or equivalent and albuterol
# GERD-continue PPI
# Right rib pain- xray negative for rib fracture. Continue Supportive care, Incentive spirometer reviewed with pt.
Code status: Full
VTE ppx: lovenox
Diet: Diabetic
Dispo planning: SNF vs home, pending PT/OT evaluation postop
Anticipated Discharge: 24 - 48 hours
Subjective/Interval History
-
Date of Service: December 17, 2024
No acute events overnight. Reports right rib pain with movement, improved with rest and heating pad. RLE pain well controlled. Feels well overall. Denies lightheadedness, dizziness, chest pain, shortness of breath, nausea, vomiting, diarrhea,
constipation. Tolerating oral diet. Resting comfortably in chair, remains strict nonweight bearing of RLE.
Objective Data
-
Labs:
Laboratory Results
12/17/24
05:15
WBC 7.0
Hgb 10.7 L
Hct 33.2 L
Plt Count 248
Sodium 137
Potassium 4.3
Chloride 100
Carbon Dioxide 33 H
BUN 11
Creatinine 0.6
Glucose 106 H
Calcium 8.9
Vital Signs:
Vital Signs
Temp Pulse Resp BP Pulse Ox
98.1 F 74 16 149/71 97
12/17/24 07:00 12/17/24 07:00 12/17/24 07:00 12/17/24 07:00 12/17/24 07:00
I&O
12/16/24 12/17/24 12/18/24
06:59 06:59 06:59
Intake Total 1320 / 1320 2480 / 2480
Balance 1320 / 1320 2480 / 2480
Review of Systems
-
History Source: Patient
All other systems: Reviewed and negative
Physical Exam
-
General: Well Developed, No Apparent Distress, Comfortable and Conversant; Negative Pain
HEENT: Normocephalic and Atraumatic
Respiratory: Clear to Auscultation, Non Labored Respirations and Other (IS at bedside, reviewed use with patient); Negative Wheezes or Crackles
Cardiac: Regular Rhythm and S1/S2
GI: Soft, Nontender, Nondistended and Normal Bowel Sounds
Musculoskeletal: Other (RLE: immobilizer/external fixator, dressing clean dry intact, normal capillary refill of toes)
Skin: Warm and Dry
Neuro: Awake, Alert, Oriented and Nonfocal/Grossly Intact
Psych: Calm and Intact Judgement/Insight
Data Reviewed
-
Diagnostic Radiology: Image personally visualized and interpreted and Report Reviewed by me
CT Scan: Report Reviewed by me
Labs: Labs Reviewed by me
--- NOTE | 2024-12-17 09:55 | W.PN.UPDATE ---
Update Note
Progress Note Update
I saw and evaluated the patient. I reviewed the resident�s note and agree with findings and plan as documented in the resident�s note.
No new complaints.
Gen: NAD, AAOx3.
Eyes: EOMI, PERRLA, no scleral icterus.
Neck: supple.
CV: remains RRR, +S1/S2, no m/r/g.
Resp: remains CTAB, no rales, wheezes, or rhonchi.
Abd: remains +BS, soft, NT, ND
Skin: No rashes.
Neuro: CN 2-12 intact, non-focal.
Psych: Normal mood and affect.
R Ankle Xray: Trimalleolar ankle fracture/dislocation with posterior subluxation of the talus relative to the distal tibia.
CT RLE: Displaced, highly comminuted trimalleolar fracture/dislocation as detailed above. Posterior displacement of the talus relative to the distal tibia. Fractures of the base of the first through fourth metatarsals. Findings may represent
Lisfranc injury.
Closed comminuted trimalleolar ankle fracture with dislocation with posterior subluxation on the right, fractures of the base of the first through fourth metatarsals:
-reduction was attempted in the ER
-s/p Right ankle multiplanar external fixator applied with close to reduction of Lisfranc fracture and closed reduction of the tib-fib pilon fracture on 12/14/24
-next surgery (ORIF) planned for 12/18/24
-Strict NWB RLE
DM2:
-cont insulin pump
-diabetes WINDOW DRESSER following
Other problems:
Hypothyroidism: cont Synthroid
Mental health disorder: cont Lamictal/Lexapro
HLD: cont atorvastatin
Asthma, not in acute exac
Migraine headaches
GERD: cont PPI
FULL/Lovenox
[2024-12-17] MEDS: ANESTHETIC LOZENGE 1 LOZENGE PO (10:09)
[2024-12-17] MEDS: PT'S OWN INSULIN PUMP - NovoLOG 1 UNIT SC (13:17)
--- NOTE | 2024-12-17 14:10 | CM ---
Chart reviewed
For ORIF tomorrow or
PT/OT post-op
Plan - TBD post op based on pt needs
[2024-12-17 14:13] LABS: Glucose - Point of Care 170 mg/dl (70-99)
[2024-12-17 14:45] VITALS: BP 151/82; PULSE 72; O2SAT 98
[2024-12-17 15:14] VITALS: BP 141/71
[2024-12-17 17:05] LABS: Glucose - Point of Care 155 mg/dl (70-99)
[2024-12-17] MEDS: PT'S OWN INSULIN PUMP - NovoLOG 1.1 UNIT SC (18:21)
[2024-12-17] MEDS: LIPITOR 40 MG PO (18:22)
[2024-12-17] MEDS: LOVENOX 40 MG SC (18:22)
[2024-12-17] MEDS: COLACE PO (20:44)
[2024-12-17] MEDS: SENOKOT PO (20:44)
[2024-12-17 21:30] LABS: Glucose - Point of Care 186 mg/dl (70-99)
[2024-12-17] MEDS: PT'S OWN INSULIN PUMP - NovoLOG 1.04 UNIT SC (22:35)
[2024-12-17 23:00] VITALS: BP 143/75
--- NOTE | 2024-12-18 04:40 | DOWNTIME ---
There was a [employer] Project Lead Downtime on 12/18/2024 from 0100 to 12/19/2023 at 0420 . Downtime documentation of patient's care, including medication administrations, has been reconciled in the electronic record per guidelines. Refer to the
patient's paper chart under the miscellaneous tab to see printed paper medication records and downtime forms.
[2024-12-18] MEDS: TYLENOL PO (04:54)
[2024-12-18 05:56] LABS: Glucose - Point of Care 132 mg/dl (70-99)
[2024-12-18 06:06] VITALS: BMI 24.7
[2024-12-18] MEDS: PT'S OWN INSULIN PUMP - NovoLOG SC ×4 (06:06→23:52)
[2024-12-18 07:00] VITALS: BP 133/60
[2024-12-18 07:22] LABS: Hematocrit 35.2 % (37.0-47.0); Hemoglobin 11.3 g/dL (12.0-16.0); Mean Corp Hgb Conc. 32.1 g/dL (33.0-37.0); Mean Corpuscular Hgb 27.2 pg (27.0-31.0); Mean Corpuscular Volume 84.6 fL (81.0-99.0); Platelet Count 275 10^3/uL (130-400); Red Blood Cell Count 4.16 10^6/uL (4.20-5.40); White Blood Cell Count 6.3 10^3/uL (4.8-10.8)
[2024-12-18] MEDS: TORADOL 10 MG IV ×2 (07:22→21:36)
[2024-12-18 07:53] LABS: Blood Urea Nitrogen 10 mg/dl (7-17); Calcium 8.9 mg/dl (8.4-10.2); Carbon Dioxide 30 mmol/L (22-30); Chloride 100 mmol/L (98-107); Estimated Creatinine Clearance 68 ml/min; Glucose 125 mg/dl (70-99); Potassium 4.4 mmol/L (3.5-5.1); Sodium 137 mmol/L (135-145); eGFR > 60.00
--- NOTE | 2024-12-18 08:43 | PN.DE.MGMTRT ---
Insulin Management
- -
12/18/2024: Diabetes Management for insulin pump follow up
69 year old female Pt presented to the D /p fall, sustained Closed Rt ankle Fx involving trimalleolar ankle fracture/dislocation with posterior subluxation of the talus. Pt had attempted reduction in the ER that was unsuccessful, plan for ORIF in
AM.
PMH: Asthma, Hypothyroidism and T1DM on insulin pump. routinely sees Endo Dr. Scott. Pt reports recent A1C was 6.8%, uses Omnipod with Dexcom G7 and NovoLog insulin. A1C 7.2%, Cr 0.6, eGFR>60
Pt awake, alert, oriented, sitting up in bed, offers no complaints, able to discuss diabetes care plan. at bedside, very supportive
POD #4 s/p Right ankle external fixator. For OR .
Insulin Pump is currently in automated mode. Pump settings as follows. ICR 1:8, ICF 1:75, Target 120, 24 hour basal total 33 units.
Patient is using insulin pump without difficulty.
Will make no adjustments to pump settings, pt aware to bolus for meals and correction if required. Discussed with patient tomorrow for OR if glucose 80 or less to set temp basal for 1/2 of current basal rate, both patient and agreeable.
After surgery when awake and alert patient to resume basal rate and correct if necessary.
Accuchecks will be done ACHS with hospital equipment.
Insulin Pump worksheet at bedside.
Will cont to follow.
Diabetes History
- -
Type of Diabetes: 2 requiring insulin
Pre-Admission Diabetes Regimen
12/18/24
06:19
Creatinine 0.7
Lab Results
Hemoglobin A1c 7.2 % (4.0-5.6) H 12/13/24 11:56
Insulin Pump Settings
IP Diabetes Regimen
12/17/24 12/17/24 12/17/24
13:15 17:04 21:29
Glucose
POC Glucose 170 H 155 H 186 H
12/18/24 12/18/24
05:55 06:19
Glucose 125 H
POC Glucose 132 H
Meal type: Dinner
Meal type: Breakfast
Amount consumed: 100%
Amount consumed: 100%
Patient Education
[2024-12-18] MEDS: COLACE 100 MG PO (09:05)
[2024-12-18] MEDS: PROTONIX 40 MG PO (09:05)
[2024-12-18] MEDS: TYLENOL 650 MG PO ×5 (09:05→23:52)
[2024-12-18] MEDS: LAMICTAL 100 MG PO ×2 (09:05→20:28)
[2024-12-18] MEDS: OSCAL CAL 500 500 MG PO (09:05)
[2024-12-18] MEDS: LIDOCAINE 4% PATCH 1 PATCH TOPICAL (09:06)
[2024-12-18] MEDS: SENOKOT PO ×2 (09:08→20:29)
--- NOTE | 2024-12-18 10:23 | W.PN.HOSP.TC ---
Today's Communication/Plan
-
Continue accuchecks and insulin, pain control. OR tomorrow with podiatry, NPO tomorrow for preop
Assessment / Plan
Assessment / Plan
69-year-old female with PMH IDDM I, asthma admitted for right ankle fracture s/p fall
Xray Ankle - Right -Trimalleolar ankle fracture/dislocation with posterior subluxation of the talus relative to the distal tibia.
CT Lower Ext W/o Iv Cont Rt
-There is a displaced, highly comminuted trimalleolar fracture/dislocation as detailed above. There is posterior displacement of the talus relative to the distal tibia.
- fractures of the base of the first through fourth metatarsals. Findings may represent Lisfranc injury.
# Closed comminuted trimalleolar ankle fracture with dislocation with posterior subluxation on the right
# Fractures of the base of the first through fourth metatarsals.
- S/p Attempted reduction in the ER.
- S/p OR with Dr. Trotter 12/14/2024-Right ankle multiplanar external fixator applied with close to reduction of Lisfranc fracture and closed reduction of the tib-fib pilon fracture
- Next surgery is planned for December 19. Discussed with podiatry and patient/family at bedside. NPO past 7am tomorrow, per Dr. Trotter.
- Strict nonweightbearing right lower extremity
- Continue PT/OT
- Pain controlled with tylenol, ketorolac. PRNs available for severe pain.
- Counseled patient on preventing constipation if using opioids for pain management.
# Diabetes I with insulin pump
- Patient follows with Dr. Scott from endocrinology
- A1C- 7.2 on admission, POC BS elevated as well
- Diabetes management following, appreciate recs.
- Continue accuchecks with hospital equipment to ensure accuracy of patients monitor
- Continue home insulin regimen and automated pump mode with bolus prn
# Hypothyroidism-continue Synthroid 125 mcg daily
# Mental health disorder, anxiety/depression-continue Lamictal and Lexapro
# Hyperlipidemia-continue atorvastatin
# Asthma-continue Breo Ellipta or equivalent and albuterol. Patient brought in home inhalers-- reviewed hospital nonformulary procedure.
# GERD-continue PPI
# Right rib pain- xray negative for rib fracture. Continue Supportive care, Incentive spirometer previously reviewed with pt.
Code status: Full
VTE ppx: lovenox
Diet: Diabetic
Dispo planning: SNF vs home, pending PT/OT evaluation postop
Anticipated Discharge: 24 - 48 hours
Subjective/Interval History
-
Date of Service: December 18, 2024
No acute events overnight. Her right rib pain has resolved after using her TENS unit from home. Her ankle pain is well-controlled. Reports loose bowel movement yesterday, which is her baseline. ROS otherwise negative. Tolerating oral diet. Has
been out of bed to the chair with assistance.
Objective Data
-
Labs:
Laboratory Results
12/18/24
06:19
WBC 6.3
Hgb 11.3 L
Hct 35.2 L
Plt Count 275
Sodium 137
Potassium 4.4
Chloride 100
Carbon Dioxide 30
BUN 10
Creatinine 0.7
Glucose 125 H
Calcium 8.9
Vital Signs:
Vital Signs
Temp Pulse Resp BP Pulse Ox
98.1 F 74 16 133/60 97
12/18/24 07:00 12/18/24 07:00 12/18/24 07:00 12/18/24 07:00 12/18/24 07:00
I&O
12/17/24 12/18/24 12/19/24
06:59 06:59 06:59
Intake Total 2480 / 2480 2099
Balance 2480 / 2480 2099
Review of Systems
-
History Source: Patient
All other systems: Reviewed and negative
Physical Exam
-
General: Well Developed, No Apparent Distress, Comfortable and Conversant; Negative Pain
HEENT: Normocephalic and Atraumatic
Respiratory: Clear to Auscultation, Non Labored Respirations and Other (IS at bedside); Negative Wheezes or Crackles
Cardiac: Regular Rhythm and S1/S2
GI: Soft, Nontender, Nondistended and Normal Bowel Sounds
Musculoskeletal: Other (RLE: immobilizer/external fixator, dressing clean dry intact, normal capillary refill of toes)
Skin: Warm and Dry
Neuro: Awake, Alert, Oriented and Nonfocal/Grossly Intact
Psych: Calm and Intact Judgement/Insight
Data Reviewed
-
Diagnostic Radiology: Image personally visualized and interpreted and Report Reviewed by me
CT Scan: Report Reviewed by me
Labs: Labs Reviewed by me
--- NOTE | 2024-12-18 10:56 | W.PN.SURGUPD ---
Surgical Update
Surgical Update
s/p RLE external fixator
-For OR tomorrow 12/19 for external fixator removal and R ankle ORIF
-NPO at midnight 12/19, DOS labs CBC, BMP, coags
-NWB to RLE
-PT/OT post-op
--- NOTE | 2024-12-18 11:27 | W.PN.UPDATE ---
Update Note
Progress Note Update
I saw and evaluated the patient. I reviewed the resident�s note and agree with findings and plan as documented in the resident�s note.
No new complaints.
Gen: NAD, AAOx3.
Eyes: EOMI, PERRLA, no scleral icterus.
Neck: supple.
CV: continues to remain RRR, +S1/S2, no m/r/g.
Resp: continues to remain CTAB, no rales, wheezes, or rhonchi.
Abd: continues to remain +BS, soft, NT, ND
Skin: No rashes.
Neuro: CN 2-12 intact, non-focal.
Psych: Normal mood and affect.
R Ankle Xray: Trimalleolar ankle fracture/dislocation with posterior subluxation of the talus relative to the distal tibia.
CT RLE: Displaced, highly comminuted trimalleolar fracture/dislocation as detailed above. Posterior displacement of the talus relative to the distal tibia. Fractures of the base of the first through fourth metatarsals. Findings may represent
Lisfranc injury.
Closed comminuted trimalleolar ankle fracture with dislocation with posterior subluxation on the right, fractures of the base of the first through fourth metatarsals:
-reduction was attempted in the ER
-s/p Right ankle multiplanar external fixator applied with close to reduction of Lisfranc fracture and closed reduction of the tib-fib pilon fracture on 12/14/24
-next surgery (ORIF) planned for 12/19/24
-Strict NWB RLE
DM2:
-a1c 7.2%
-cont insulin pump
-diabetes DIRECTOR OF DATABASE MARKETING following
Other problems:
Hypothyroidism: cont Synthroid
Mental health disorder: cont Lamictal/Lexapro
HLD: cont atorvastatin
Asthma, not in acute exac
Migraine headaches
GERD: cont PPI
FULL/Lovenox
--- NOTE | 2024-12-18 12:09 | CM ---
Chart reviewed; met with pt and at bedside
Pt for OR tomorrow. Post op PT eval pending
Discussed dispo plan with pt/ - prefer home with HH. Given PAC list to review for SNF
Plan - anticipate home with HH vs SNF pending PT eval post-op
[2024-12-18 12:15] LABS: Glucose - Point of Care 161 mg/dl (70-99)
[2024-12-18] MEDS: NON-FORMULARY ITEM 1 UNIT INH (12:53)
[2024-12-18 13:40] VITALS: BP 140/66; PULSE 81; O2SAT 97
[2024-12-18 15:20] VITALS: BP 116/51
[2024-12-18] MEDS: LIPITOR 40 MG PO (17:13)
[2024-12-18] MEDS: LOVENOX 40 MG SC (17:13)
[2024-12-18] MEDS: COLACE PO (20:29)
[2024-12-18] MEDS: NON-FORMULARY ITEM INH (20:56)
[2024-12-18 21:12] LABS: Glucose - Point of Care 209 mg/dl (70-99)
[2024-12-18] MEDS: ATIVAN 0.5 MG PO (21:36)
[2024-12-18 23:30] VITALS: BP 137/57
[2024-12-18 23:55] LABS: Glucose - Point of Care 143 mg/dl (70-99)
[2024-12-19] VITALS (10 sets, daily range): BP systolic 121–148; BP diastolic 51–72
[2024-12-19] MEDS: TYLENOL 650 MG PO ×4 (04:55→23:55)
[2024-12-19 06:09] LABS: Glucose - Point of Care 135 mg/dl (70-99)
[2024-12-19] MEDS: PT'S OWN INSULIN PUMP - NovoLOG SC ×4 (06:10→23:53)
[2024-12-19 06:54] LABS: Hematocrit 31.6 % (37.0-47.0); Hemoglobin 10.4 g/dL (12.0-16.0); Mean Corp Hgb Conc. 32.9 g/dL (33.0-37.0); Mean Corpuscular Hgb 27.7 pg (27.0-31.0); Platelet Count 264 10^3/uL (130-400); Red Blood Cell Count 3.76 10^6/uL (4.20-5.40); Red Cell Dist. Width 13.1 % (11.5-14.5); White Blood Cell Count 5.9 10^3/uL (4.8-10.8)
[2024-12-19 07:10] LABS: Glucose - Point of Care 156 mg/dl (70-99)
--- NOTE | 2024-12-19 07:22 | PN.DE.MGMTRT ---
Insulin Management
- -
12/19/2024: Diabetes Management for insulin pump follow up
Patient admitted 12/13 s/p fall, sustained Closed Rt ankle Fx involving trimalleolar ankle fracture/dislocation with posterior subluxation of the talus. Pt had attempted reduction in the ER that was unsuccessful.
PMH: Asthma, Hypothyroidism and T1DM on insulin pump. routinely sees Endo Dr. Scott. Pt reports recent A1C was 6.8%, uses Omnipod with Dexcom G7 and NovoLog insulin. A1C 7.2%, Cr 0.6, eGFR>60
Pt awake, alert, oriented, sitting up in bed, offers no complaints, able to discuss diabetes care plan. at bedside, very supportive
POD #5 s/p Right ankle external fixator. For OR today.
Insulin Pump is currently in automated mode. Pump settings as follows. ICR 1:8, ICF 1:75, Target 120, 24 hour basal total 33 units.
Patient is using insulin pump without difficulty.
Will make no adjustments to pump settings, pt aware to bolus for meals and correction if required. Fasting glucose this AM 156 POC. Discussed with patient for OR basal rate can remain on. After surgery when awake and alert patient to correct if
necessary.
Accuchecks will be done ACHS with hospital equipment.
Insulin Pump worksheet at bedside.
Will cont to follow.
Diabetes History
- -
Type of Diabetes: 2 requiring insulin
Pre-Admission Diabetes Regimen
12/18/24
06:19
Creatinine 0.7
Lab Results
Hemoglobin A1c 7.2 % (4.0-5.6) H 12/13/24 11:56
Insulin Pump Settings
IP Diabetes Regimen
12/18/24 12/18/24 12/18/24
06:19 12:13 21:11
Glucose 125 H
POC Glucose 161 H 209 H
12/18/24 12/19/24 12/19/24
23:53 06:08 07:08
Glucose
POC Glucose 143 H 135 H 156 H
Meal type: Dinner
Meal type: Lunch
Meal type: Breakfast
Amount consumed: 100%
Amount consumed: Patient refused
Amount consumed: 100%
Patient Education
[2024-12-19 07:25] LABS: Blood Urea Nitrogen 10 mg/dl (7-17); Calcium 8.6 mg/dl (8.4-10.2); Carbon Dioxide 29 mmol/L (22-30); Chloride 100 mmol/L (98-107); Estimated Creatinine Clearance 80 ml/min; Glucose 131 mg/dl (70-99); Potassium 4.9 mmol/L (3.5-5.1); Sodium 136 mmol/L (135-145); eGFR > 60.00
[2024-12-19] MEDS: NON-FORMULARY ITEM 1 UNIT INH (07:38)
--- NOTE | 2024-12-19 08:30 | W.PN.UPDATE ---
Update Note
Progress Note Update
I saw and evaluated the patient. I reviewed the resident�s note and agree with findings and plan as documented in the resident�s note.
No new complaints.
Gen: NAD, Awake and alert
Eyes: EOMI, PERRLA, no scleral icterus.
Neck: supple.
CV: RRR, +S1/S2, no m/r/g.
Resp: CTAB, no rales, wheezes, or rhonchi.
Abd: +BS, soft, NT, ND
Skin: No rashes.
Neuro: CN 2-12 intact, non-focal.
Psych: Normal mood and affect.
R Ankle Xray: Trimalleolar ankle fracture/dislocation with posterior subluxation of the talus relative to the distal tibia.
CT RLE: Displaced, highly comminuted trimalleolar fracture/dislocation as detailed above. Posterior displacement of the talus relative to the distal tibia. Fractures of the base of the first through fourth metatarsals. Findings may represent
Lisfranc injury.
Closed comminuted trimalleolar ankle fracture with dislocation with posterior subluxation on the right, fractures of the base of the first through fourth metatarsals:
-reduction was attempted in the ER
-s/p Right ankle multiplanar external fixator applied with close to reduction of Lisfranc fracture and closed reduction of the tib-fib pilon fracture on 12/14/24
-next surgery (ORIF) planned for 12/19/24
-Strict NWB RLE
DM2:
-a1c 7.2%
-cont insulin pump
-diabetes [employer] SHE[employer] MECH[employer]IC following
Other problems:
Hypothyroidism: cont Synthroid
Mental health disorder: cont Lamictal/Lexapro
HLD: cont atorvastatin
Asthma, not in acute exac
Migraine headaches
GERD: cont PPI
FULL/Lovenox
[2024-12-19] MEDS: COLACE PO (08:49)
[2024-12-19] MEDS: SENOKOT PO (08:49)
[2024-12-19] MEDS: OSCAL CAL 500 500 MG PO (09:07)
[2024-12-19] MEDS: PROTONIX 40 MG PO (09:07)
[2024-12-19] MEDS: LAMICTAL 100 MG PO ×2 (09:08→21:44)
[2024-12-19] MEDS: LIDOCAINE 4% PATCH TOPICAL (09:08)
--- NOTE | 2024-12-19 09:56 | W.PN.HOSP.TC ---
Today's Communication/Plan
-
N.p.o. Will be for OR with podiatry today.
Assessment / Plan
Assessment / Plan
69-year-old female with PMH IDDM I, asthma admitted for right ankle fracture s/p fall
Xray Ankle - Right -Trimalleolar ankle fracture/dislocation with posterior subluxation of the talus relative to the distal tibia.
CT Lower Ext W/o Iv Cont Rt
-There is a displaced, highly comminuted trimalleolar fracture/dislocation as detailed above. There is posterior displacement of the talus relative to the distal tibia.
- fractures of the base of the first through fourth metatarsals. Findings may represent Lisfranc injury.
# Closed comminuted trimalleolar ankle fracture with dislocation with posterior subluxation on the right
# Fractures of the base of the first through fourth metatarsals.
- S/p Attempted reduction in the ER.
- S/p OR with Dr. Trotter 12/14/2024-Right ankle multiplanar external fixator applied with close to reduction of Lisfranc fracture and closed reduction of the tib-fib pilon fracture
- Next surgery is planned for this afternoon. Discussed patient/family at bedside; previously discussed with podiatry. NPO.
- Strict nonweightbearing right lower extremity
- Continue PT/OT
- Pain controlled with tylenol, ketorolac. PRNs available for severe pain.
# Diabetes I with insulin pump
- Patient follows with Dr. Scott from endocrinology
- A1C- 7.2 on admission, POC BS elevated as well
- Diabetes management following, appreciate recs.
- Continue accuchecks with hospital equipment to ensure accuracy of patients monitor
- Continue home insulin regimen and automated pump mode with bolus prn
# Hypothyroidism-continue Synthroid 125 mcg daily
# Mental health disorder, anxiety/depression-continue Lamictal and Lexapro
# Hyperlipidemia-continue atorvastatin
# Asthma-continue Breo Ellipta or equivalent and albuterol. Patient brought in home inhalers-- previously reviewed hospital nonformulary procedure.
# GERD-continue PPI
# Right rib pain- xray negative for rib fracture. Continue Supportive care, Incentive spirometer previously reviewed with pt.
Code status: Full
VTE ppx: lovenox
Diet: Diabetic
Dispo planning: SNF vs home, pending PT/OT evaluation postop
Anticipated Discharge: 24 - 48 hours
Subjective/Interval History
-
Date of Service: December 19, 2024
No acute events overnight. She did receive PRN lorazepam which helped her anxiety. No complaints this morning. Feels well, pain well-controlled, ROS negative. Voiding spontaneously. Last BM yesterday. Out of bed to chair and bedside commode.
Objective Data
-
Labs:
Laboratory Results
12/19/24
05:56
WBC 5.9
Hgb 10.4 L
Hct 31.6 L
Plt Count 264
Sodium 136
Potassium 4.9
Chloride 100
Carbon Dioxide 29
BUN 10
Creatinine 0.6
Glucose 131 H
Calcium 8.6
Vital Signs:
Vital Signs
Temp Pulse Resp BP Pulse Ox
98.6 F 76 16 136/72 92
12/19/24 07:50 12/19/24 07:50 12/19/24 07:50 12/19/24 07:50 12/19/24 07:50
I&O
12/18/24 12/19/24 12/20/24
06:59 06:59 06:59
Intake Total 2099
Balance 2099
Review of Systems
-
History Source: Patient
All other systems: Reviewed and negative
Physical Exam
-
General: Well Developed, No Apparent Distress, Comfortable and Conversant; Negative Pain, Fever, Chills or Sweats
HEENT: Normocephalic and Atraumatic
Respiratory: Clear to Auscultation, Non Labored Respirations and Other (IS at bedside); Negative Wheezes or Crackles
Cardiac: Regular Rhythm and S1/S2
GI: Soft, Nontender, Nondistended and Normal Bowel Sounds
Musculoskeletal: Other (RLE: immobilizer/external fixator, dressing clean dry intact, normal capillary refill of toes; LLE with lower/upper SCD)
Skin: Warm and Dry
Neuro: Awake, Alert, Oriented and Nonfocal/Grossly Intact
Psych: Calm and Intact Judgement/Insight
Data Reviewed
-
Diagnostic Radiology: Image personally visualized and interpreted and Report Reviewed by me
CT Scan: Report Reviewed by me
Labs: Labs Reviewed by me
[2024-12-19 11:12] LABS: Glucose - Point of Care 107 mg/dl (70-99)
[2024-12-19] MEDS: TYLENOL PO ×2 (12:00→16:00)
--- NOTE | 2024-12-19 12:01 | CM ---
Plan: OR later this afternoon, continue to follow for d/c needs.
[2024-12-19 15:59] LABS: Glucose - Point of Care 104 mg/dl (70-99)
[2024-12-19 17:18] LABS: Glucose - Point of Care 78 mg/dl (70-99)
[2024-12-19 17:18] LABS: Glucose - Point of Care 78 mg/dl (70-99)
[2024-12-19 18:03] LABS: Glucose - Point of Care 67 mg/dl (70-99)
[2024-12-19 18:15] LABS: Glucose - Point of Care 69 mg/dl (70-99)
[2024-12-19 18:57] LABS: Glucose - Point of Care 154 mg/dl (70-99)
[2024-12-19] MEDS: NON-FORMULARY ITEM INH (19:36)
--- NOTE | 2024-12-19 19:54 | W.PN.SURGUPD ---
Surgical Update
Surgical Update
69 yo F s/p R ankle ORIF
-Posterior splint to remain C/D/I
-Strict NWB to RLE
-PT/OT
-Continue ancef for 24 hours post op
-OK to DC
[2024-12-19 20:00] LABS: Glucose - Point of Care 131 mg/dl (70-99)
[2024-12-19] MEDS: COLACE 100 MG PO (21:43)
[2024-12-19 21:44] LABS: Glucose - Point of Care 203 mg/dl (70-99)
[2024-12-19] MEDS: SENOKOT 17.2 MG PO (21:44)
[2024-12-19] MEDS: LOVENOX 40 MG SC (21:44)
[2024-12-19] MEDS: LIPITOR 40 MG PO (21:44)
[2024-12-19] MEDS: ANCEF 10 IV (23:53)
[2024-12-20 03:05] VITALS: BP 124/65
[2024-12-20 03:15] LABS: Glucose - Point of Care 310 mg/dl (70-99)
[2024-12-20] MEDS: TYLENOL PO (05:21)
[2024-12-20] MEDS: PT'S OWN INSULIN PUMP - NovoLOG SC (05:22)
[2024-12-20 07:27] VITALS: BP 118/58
[2024-12-20] MEDS: NON-FORMULARY ITEM 1 UNIT INH (07:27)
[2024-12-20 08:07] LABS: Glucose - Point of Care 174 mg/dl (70-99)
--- NOTE | 2024-12-20 08:13 | PN.DE.MGMTRT ---
Insulin Management
- -
12/20/2024: Diabetes Management for insulin pump follow up
Patient admitted 12/13 s/p fall, sustained Closed Rt ankle Fx involving trimalleolar ankle fracture/dislocation with posterior subluxation of the talus. Pt had attempted reduction in the ER that was unsuccessful.
PMH: Asthma, Hypothyroidism and T1DM on insulin pump. routinely sees Endo Dr. Scott. Pt reports recent A1C was 6.8%, uses Omnipod with Dexcom G7 and NovoLog insulin. A1C 7.2%, Cr 0.6, eGFR>60
Pt awake, alert, oriented, sitting up in bed, offers no complaints, able to discuss diabetes care plan. - Isael at bedside, very supportive
POD # 1 s/p Right ankle ORIF. POD # 6 s/p Right ankle external fixator.
Pt was NPO for OR most of day yesterday, noted for an episode of Hypoglycemia to 67, improved with treatment
Insulin Pump is currently in automated mode. Pump settings as follows. ICR 1:8, ICF 1:75, Target 120, 24 hour basal total 33 units.
Patient is using insulin pump without difficulty. Glucose trended up to 302# 3AM, fasting down to 174 this AM.
Will make no adjustments to pump settings, pt aware to bolus for meals and correction if required. Fasting glucose this AM 174 POC.
Discussed with patient, instructed to correct for elevations and at meal times. Accuchecks will be done ACHS with hospital equipment.
Insulin Pump worksheet at bedside.
Will cont to follow.
Diabetes History
- -
Type of Diabetes: 1
Pre-Admission Diabetes Regimen
Lab Results
Hemoglobin A1c 7.2 % (4.0-5.6) H 12/13/24 11:56
Insulin Pump Settings
IP Diabetes Regimen
12/19/24 12/19/24 12/19/24
11:10 15:58 17:16
POC Glucose 107 H 104 H 78
12/19/24 12/19/24 12/19/24
17:17 17:56 18:13
POC Glucose 78 67 L 69 L
12/19/24 12/19/24 12/19/24
18:56 19:58 21:43
POC Glucose 154 H 131 H 203 H
12/20/24 12/20/24
03:13 08:06
POC Glucose 310 H 174 H
Meal type: Lunch
Meal type: Breakfast
Patient Education
--- NOTE | 2024-12-20 08:29 | W.PN.UPDATE ---
Addendum entered and electronically signed by Alexis Morejon MD 12/20/24 15:48:
Acute blood loss anemia
Addendum entered and electronically signed by Alexis Morejon MD 12/20/24 12:58:
Total time spent on d/c = 32 min. This included today's physical exam, progress note, review of laboratory and diagnostic data, preparation of discharge documents and prescriptions, and discussions about the pt's hospital course and discharge plan
with the patient and other biomedical analytical scientist involved in the patient's care.
Original Note:
Update Note
Progress Note Update
I saw and evaluated the patient. I reviewed the resident�s note and agree with findings and plan as documented in the resident�s note.
No new complaints.
Gen: NAD, Awake and alert
Eyes: EOMI, PERRLA, no scleral icterus.
Neck: supple.
CV: remains RRR, +S1/S2, no m/r/g.
Resp: remains CTAB, no rales, wheezes, or rhonchi.
Abd: +BS, soft, NT, ND
Skin: No rashes.
Neuro: remains CN 2-12 intact, non-focal.
Psych: Normal mood and affect.
R Ankle Xray: Trimalleolar ankle fracture/dislocation with posterior subluxation of the talus relative to the distal tibia.
CT RLE: Displaced, highly comminuted trimalleolar fracture/dislocation as detailed above. Posterior displacement of the talus relative to the distal tibia. Fractures of the base of the first through fourth metatarsals. Findings may represent
Lisfranc injury.
Closed comminuted trimalleolar ankle fracture with dislocation with posterior subluxation on the right, fractures of the base of the first through fourth metatarsals:
-reduction was attempted in the ER
-s/p Right ankle multiplanar external fixator applied with close to reduction of Lisfranc fracture and closed reduction of the tib-fib pilon fracture on 12/14/24
-s/p ORIF on 12/19/24
-Strict NWB RLE
DM2:
-a1c 7.2%
-cont insulin pump
-diabetes COCKTAIL SERVER following
Other problems:
Hypothyroidism: cont Synthroid
Mental health disorder: cont Lamictal/Lexapro
HLD: cont atorvastatin
Asthma, not in acute exac
Migraine headaches
GERD: cont PPI
FULL/Lovenox
Medically cleared for d/c. Case management aware.
[2024-12-20 08:31] LABS: Hematocrit 28.8 % (37.0-47.0); Hemoglobin 9.3 g/dL (12.0-16.0); Mean Corp Hgb Conc. 32.3 g/dL (33.0-37.0); Mean Corpuscular Hgb 27.5 pg (27.0-31.0); Mean Corpuscular Volume 85.2 fL (81.0-99.0); Mean Platelet Volume 8.8 fL (7.4-10.4); Platelet Count 293 10^3/uL (130-400); Red Blood Cell Count 3.38 10^6/uL (4.20-5.40); Red Cell Dist. Width 13.3 % (11.5-14.5)
[2024-12-20] MEDS: LIDOCAINE 4% PATCH 1 PATCH TOPICAL (08:49)
[2024-12-20] MEDS: PROTONIX 40 MG PO (08:50)
[2024-12-20] MEDS: OSCAL CAL 500 500 MG PO (08:50)
[2024-12-20] MEDS: TYLENOL 650 MG PO ×2 (08:50→12:47)
[2024-12-20] MEDS: LAMICTAL 100 MG PO (08:51)
[2024-12-20] MEDS: COLACE 100 MG PO (08:51)
[2024-12-20] MEDS: SENOKOT 17.2 MG PO (08:51)
[2024-12-20] MEDS: ANCEF 10 IV (08:56)
[2024-12-20 09:02] LABS: Blood Urea Nitrogen 9 mg/dl (7-17); Calcium 8.4 mg/dl (8.4-10.2); Carbon Dioxide 26 mmol/L (22-30); Chloride 100 mmol/L (98-107); Estimated Creatinine Clearance 80 ml/min; Glucose 192 mg/dl (70-99); Potassium 4.6 mmol/L (3.5-5.1); Sodium 133 mmol/L (135-145); eGFR > 60.00
--- NOTE | 2024-12-20 09:26 | W.PN.HOSP.TC ---
Addendum entered and electronically signed by Eliz Giang MD, Resident 12/20/24 14:45:
Patient is in need of a walker to prevent falls due to unsteady gait.
Original Note:
Today's Communication/Plan
-
Continue antibiotics for 24 hours postop. Ready for discharge pending PT/OT evaluation.
Assessment / Plan
Assessment / Plan
69-year-old female with PMH IDDM I, asthma admitted for right ankle fracture s/p fall
Xray Ankle - Right -Trimalleolar ankle fracture/dislocation with posterior subluxation of the talus relative to the distal tibia.
CT Lower Ext W/o Iv Cont Rt
-There is a displaced, highly comminuted trimalleolar fracture/dislocation as detailed above. There is posterior displacement of the talus relative to the distal tibia.
- fractures of the base of the first through fourth metatarsals. Findings may represent Lisfranc injury.
# Closed comminuted trimalleolar ankle fracture with dislocation with posterior subluxation on the right
# Fractures of the base of the first through fourth metatarsals.
- S/p Attempted reduction in the ER.
- S/p OR with Dr. Trotter 12/14/2024-Right ankle multiplanar external fixator applied with close to reduction of Lisfranc fracture and closed reduction of the tib-fib pilon fracture
- S/p ORIF with Dr. Trotter 12/19/2024
- Continue ancef for 24 hours postop per podiatry
- Strict nonweightbearing right lower extremity
- Continue PT/OT. Discharge planning pending PT/OT evaluation.
- Pain controlled with tylenol, ketorolac. PRNs available for severe pain-- did not require oxycodone or dilaudid overnight.
- Stable for discharge after antibiotics and PT/OT evaluation.
# Diabetes I with insulin pump
- Patient follows with Dr. Scott from endocrinology
- A1C- 7.2 on admission, POC BS elevated as well
- Diabetes management following, appreciate recs.
- Continue accuchecks with hospital equipment to ensure accuracy of patients monitor
- Continue home insulin regimen and automated pump mode with bolus prn
# Hypothyroidism-continue Synthroid 125 mcg daily
# Mental health disorder, anxiety/depression-continue Lamictal and Lexapro
# Hyperlipidemia-continue atorvastatin
# Asthma-continue Breo Ellipta or equivalent and albuterol. Patient brought in home inhalers-- previously reviewed hospital nonformulary procedure.
# GERD-continue PPI
# Right rib pain- xray negative for rib fracture. Continue Supportive care, Incentive spirometer previously reviewed with pt.
Code status: Full
VTE ppx: lovenox
Diet: Diabetic
Dispo planning: anticipate discharge today-- SNF vs home, pending PT/OT evaluation postop
Anticipated Discharge: Today
Subjective/Interval History
-
Date of Service: December 20, 2024
No acute events overnight. Feeling well this morning, pain well-controlled, no complaints. Tolerating oral diet, voiding spontaneously, out of bed to bedside commode.
Objective Data
-
Labs:
Laboratory Results
12/20/24
07:53
WBC 7.0
Hgb 9.3 L
Hct 28.8 L
Plt Count 293
Sodium 133 L
Potassium 4.6
Chloride 100
Carbon Dioxide 26
BUN 9
Creatinine 0.6
Glucose 192 H
Calcium 8.4
Vital Signs:
Vital Signs
Temp Pulse Resp BP Pulse Ox
98.6 F 74 16 118/58 97
12/20/24 07:27 12/20/24 07:32 12/20/24 07:32 12/20/24 07:27 12/20/24 07:32
I&O
12/19/24 12/20/24 12/21/24
06:59 06:59 06:59
Intake Total 2210 / 2210 780 / 780
Balance 2209
Review of Systems
-
History Source: Patient
All other systems: Reviewed and negative
Physical Exam
-
General: Well Developed, No Apparent Distress, Comfortable and Conversant; Negative Pain, Fever, Chills or Sweats
HEENT: Normocephalic and Atraumatic
Respiratory: Non Labored Respirations and Other (IS at bedside)
Cardiac: Regular Rhythm
GI: Soft, Nontender and Nondistended
Musculoskeletal: Other (RLE: Dressings clean/dry/intact)
Skin: Warm and Dry
Neuro: Awake, Alert, Oriented and Nonfocal/Grossly Intact
Psych: Calm and Intact Judgement/Insight
Data Reviewed
-
Diagnostic Radiology: Image personally visualized and interpreted and Report Reviewed by me
CT Scan: Report Reviewed by me
Labs: Labs Reviewed by me
--- NOTE | 2024-12-20 11:30 | CM ---
Met with pt and her at bedside
PT [facility] - discussed with pt - agreed to home health - no preference
TT sent to [facility] Liaison for home care needs - will need wheel chair per PT - liaison aware
Reviewed IMM
Plan - home with [facility] when medically ready
--- NOTE | 2024-12-20 11:58 | VNURNOTE ---
Home Health Liaison met with patient at bedside to discuss [facility] nurse/therapy, visits, schedule and homebound status. Patient is agreeable and understands that visits at home will be 2-3 x per week to assess and teach medical management. Patient
is aware that [facility] will contact them for start of care in 1-2 days after discharge from . WC with elevating leg rests set up with [employer]. Spoke with Jennifer and she confirmed they will deliver to patient's hospital room today. Relayed to
her that patient wants to rent WC out of pocket. Jennifer will speak with pt's spouse to collect payment info. Demographic info faxed to [employer]. RW to be provided by PT prior to DC. POOJA Escalante updated.
[facility] referral completed in [facility].
[2024-12-20 12:37] LABS: Glucose - Point of Care 209 mg/dl (70-99)
[2024-12-20] MEDS: PT'S OWN INSULIN PUMP - NovoLOG 30.3 UNIT SC (12:49)
[2024-12-20 15:14] VITALS: BP 130/59
--- NOTE | 2024-12-20 15:31 | PN.CDI ---
CDI
- -
CDI:
Physician Documentation Request
Admit Date: 12/13/24 16:09
Dear Doctor,
Please review the following and provide your response in the progress notes.
Clinical Indicators:
- 12/20 PN 'S/p ORIF with Dr. Trotter 12/19/2024'
- 12/19 OR Report indicates EBL 150
Laboratory Tests
12/13/24 12/15/24 12/17/24
11:56 04:01 05:15
Hgb 12.0 10.6 L 10.7 L
12/18/24 12/19/24 12/20/24
06:19 05:56 07:53
Hgb 11.3 L 10.4 L 9.3 L
Please clarify the diagnosis with the above findings
Acute blood loss anemia
Acute blood loss anemia with baseline chronic anemia (Specify type)
Other (please specify)
Use of terms such as suspected, likely, concern for, or probable (associated with a specific diagnosis that is being evaluated, monitored, or treated as if it exists) are acceptable and can be coded in the inpatient setting, when documented at the
time of discharge.
Thank you,
Keo Romo RN
CDI Specialist
Please use your independent medical judgment in providing your response.
[2024-12-20 15:55] VITALS: BP 132/61; PULSE 87; O2SAT 98
--- NOTE | 2024-12-20 16:04 | W.DCSUMMARY ---
Discharge Summary
Discharge Data
Date of Admission: 12/13/24
Date of Discharge: 12/20/24
-
Pending Results: No
Hospital Course
Discharging Physician : Dr. Giang/Dr. Morejon
Disposition : Home with home health
Primary care physician : Xander Lawton
Principal Discharge diagnosis :
Status post mechanical fall
Closed displaced ankle fracture, right
Fractures of metatarsals, right
Status post external fixator and closed reduction 12/14/24
Status post open reduction and internal fixation 12/19/24
Chronic Discharge diagnosis :
Type 1 diabetes on insulin pump
Hypothyroidism
Mental health disorder, anxiety/depression
Hyperlipidemia
Asthma
Gastroesophageal reflux disease
Hospital Course :
Presented to hospital with right ankle deformity and pain after slipping down several steps. Imaging notable for fractures, as below. She underwent right ankle external fixator with Dr. Trotter on 12/14/2024, with plan being for second stage of
procedure within the week. Patient elected to remain inpatient during interim. She underwent open reduction and internal fixation with Dr. Trotter on 12/19/2024. Her other chronic conditions remained stable. She continued use of her insulin pump
throughout hospitalization. On day of discharge, she was stable.
Important imaging findings :
R ankle xray 12/13/24
FINDINGS:
Bones: There are comminuted, displaced fractures of the distal fibula, medial malleolus and posterior tibia. There is posterior subluxation of the talus relative to the tibia. Posterior calcaneal spur.
Soft tissue: Diffuse soft tissue swelling along the ankle.
IMPRESSION:
Trimalleolar ankle fracture/dislocation with posterior subluxation of the talus relative to the distal tibia.
R lower extremity CT 12/13/24
FINDINGS:
Redemonstration of the comminuted nondisplaced distal fibular and distal tibial fractures. The distal fibular fracture extends from the level of the syndesmosis.. There is a highly comminuted fracture of the distal tibia involving the posterior
medial malleoli and extending to the articular surface. This involves approximately 35% of the articular surface. There is disruption of the tibiotalar joint with posterior displacement of the talar dome relative to the distal tibia. There is
associated adjacent soft tissue swelling and stranding with a likely small hematoma. The visualized tendons appear grossly intact.
Not seen on same-day radiograph is a minimally displaced fracture of the base of the first metatarsal (series 203 image 75), second metatarsal (series 203 image 69), third metatarsal and fourth metatarsal (series 201 image 101.
Small plantar calcaneal spur.
IMPRESSION:
There is a displaced, highly comminuted trimalleolar fracture/dislocation as detailed above. There is posterior displacement of the talus relative to the distal tibia.
There are fractures of the base of the first through fourth metatarsals. Findings may represent Lisfranc injury.
Ribs/chest xray 12/15/24
FINDINGS: There are no findings to suggest recent right rib fracture or suggests focal cortical bony destructive process.
Some degenerative changes are seen within the thoracic spine.
There is no focal parenchymal opacification, pneumothorax, pleural effusion or mediastinal shift.
The heart is normal in size.
IMPRESSION:
No findings to suggest recent right rib fracture.
R ankle CR 12/19/24
4 intraoperative radiographs demonstrate internal fixation of distal right fibular and tibial fractures. Alignment appears anatomic.
IMPRESSION: Fluoroscopy and radiographs utilized for internal fixation of trimalleolar fracture.
Discharge Plan
-
Patient Disposition: Home with Home Care
Discharge Diagnosis/Procedures: Closed ankle fracture
Fractures of metatarsals
Status post external fixator and closed reduction 12/14/24
Status post open reduction and internal fixation 12/19/24
Diabetes Type 1 with insulin pump
Condition: Good
Diet: Diabetic, Carb Controlled
Activity: As tolerated, Do not bear weight R leg and With Walker
Driving Restrictions: Not until seen by your Dr
Bathing Restrictions: Do not get dressing wet. Ask your doctor.
Other Services: VN and PT
Instructions: Preventing falls in adults, Surgery to fix a broken bone - Discharge instructions, BLOOD PRESSURE
Referrals:
Jimy Trotter DPM [Active] - in less than 1 week (Call the Material Preparation Worker office to schedule follow up appointment.)
Xander Lawton CRNP [Family Provider] - in less than 1 week (Call your Primary Care Provider to schedule follow up appointment within 1 week of hospital discharge.)
Additional Discharge Medication Instructions: Continue your home medications and insulin pump. Call your Primary Care Provider if you have medication questions or need refills.
Continue acetaminophen/ibuprofen for pain.
Prescriptions:
Continued
omeprazole 40 mg Capsule,Delayed Release(Dr/Ec)
40 mg PO DAILY
levothyroxine [Synthroid] 125 mcg Tablet
125 mcg PO DAILY
albuterol sulfate 90 mcg/actuation Hfa Aerosol Inhaler
2 puff INHALATION R Q6HPRN PRN (Reason: sob)
calcium citrate 200 mg (950 mg) Tablet
600 mg PO DAILY
Visbiome 112.5 billion cell Capsule
1 cap PO DAILY
fluticasone furoate-vilanterol [Breo Ellipta] 100-25 mcg/dose Blister With Device
1 inh INHALATION R DAILY
Patient Own Insulin Pump
0 pump SC .NOVOLOG
fluticasone propion-salmeterol [Wixela Inhub] 100-50 mcg/dose Blister With Device
1 inh INHALATION BID
atorvastatin [Lipitor] 40 mg Tablet
40 mg PO QPM Qty: 0 0RF
cyanocobalamin (vitamin B-12) 1,000 mcg Tablet
1,000 mcg PO DAILY Qty: 0 0RF
lamotrigine [Lamictal] 100 mg Tablet
100 mg PO BID Qty: 0 0RF
escitalopram oxalate [Lexapro] 10 mg Tablet
30 mg PO DAILY Qty: 0 0RF
Discharge Orders:
Discharge Patient (As Directed); Ordered 12/20/24
Ordered By: Alexis Morejon
Discharge Date and Time
Print Language: SAMMARINESE
== END 2024-12-20 16:53 | disposition home health service (06) | DRG 493 ==
LOC: 2 SOUTH 16:09
PROVIDERS: Hospitalist; Nurse Practitioner; Student in an Organized Health Care Education/Training Program; ADMITTING PHYSICIAN Internal Medicine; ATTENDING PHYSICIAN Internal Medicine; CONSULT PHYSICIAN Student in an Organized Health Care Education/Training Program; EMERGENCY PHYSICIAN Student in an Organized Health Care Education/Training Program; FAMILY PHYSICIAN Registered Nurse
PROC: 0QS Lower Bones, Reposition (ICD-10-PCS; 2024-12-14)
PROC: 0QPG05Z Removal of External Fixation Device from Right Tibia, Open Approach (ICD-10-PCS; 2024-12-19)
PROC: 0QSJ04Z Reposition Right Fibula with Internal Fixation Device, Open Approach (ICD-10-PCS; 2024-12-19)
PROC: 0QSG04Z Reposition Right Tibia with Internal Fixation Device, Open Approach (ICD-10-PCS; 2024-12-19)
DX: S82.871A Displaced pilon fracture of right tibia, initial encounter for closed fracture (principal); D62 Acute posthemorrhagic anemia; S82.851A Displaced trimalleolar fracture of right lower leg, initial encounter for closed fracture; E10.9 Type 1 diabetes mellitus without complications; M21.961 Unspecified acquired deformity of right lower leg; W10.9XXA Fall (on) (from) unspecified stairs and steps, initial encounter; E03.9 Hypothyroidism, unspecified; E78.5 Hyperlipidemia, unspecified; S93.439A Sprain of tibiofibular ligament of unspecified ankle, initial encounter; J45.909 Unspecified asthma, uncomplicated; K21.9 Gastro-esophageal reflux disease without esophagitis; G43.909 Migraine, unspecified, not intractable, without status migrainosus; F41.9 Anxiety disorder, unspecified; F32.A Depression, unspecified; Z79.4 Long term (current) use of insulin; M77.30 Calcaneal spur, unspecified foot; Z96.41 Presence of insulin pump (external) (internal)
CPT/HCPCS: 27818; 71101; 73600; 73610; 73700; 76000; 80048; 80053; 82962; 83036; 85025; 85027; 93005; 94640; 96374; 96375; 96376; 97116; 97163; 97167; 97530; 97535; 99285

== ENCOUNTER → 2025-08-01 14:01 | Outpatient (REF) | payer MEDICARE, OTHER, SELFPAY | LOC: WDC 14:01 | PROVIDERS: ATTENDING PHYSICIAN Family Medicine | DX: Z12.31 Encounter for screening mammogram for malignant neoplasm of breast (principal) | CPT/HCPCS: 77063; 77067 ==